=== PATIENT | male | born 1965 | race Caucasian/White ===

== ENCOUNTER 2016-09-15 14:08 | Emergency (ER) | payer BC, MEDICAID, OTHER ==
[2016-09-15] MEDS ORDERED: INSULIN REG, HUMAN 100 UNIT/ML 3 ML VIAL (PYX) SUBCUT ONE ×3 (15:13→17:08)
[2016-09-15] MEDS ORDERED: NORMAL SALINE 1000 ML 1,000 ML IV PRN (15:13)
--- NOTE | 2016-09-15 15:18 | ER Document Report ---
ED General - General Chief Complaint: High Blood Sugar Stated Complaint: BLOOD SUGAR PROBLEM Mode of Arrival: Ambulatory Information source: Patient Notes: 50-year-old male who has a history of borderline diabetes presents with complaints of high blood sugar. Patient notes his mother was checking his blood sugar noted to be 400-500+ the past 3 days. Patient has had increased urination with blurry vision. Denies any chest pain shortness breath difficult to breathing or any other concerns TRAVEL OUTSIDE OF THE [place] IN LAST 30 DAYS: No - HPI Onset: Last week Onset/Duration: Persistent Quality of pain: No pain Severity: Mild Pain Level: Denies Associated symptoms: Other Exacerbated by: Denies Relieved by: Denies Similar symptoms previously: Yes Recently seen / treated by doctor: Yes Past Medical History - Social History Smoking Status: Never Smoker Cigarette use (# per day): No Chew tobacco use (# tins/day): No Smoking Education Provided: No Family History: Reviewed & Not Pertinent Patient has suicidal ideation: No Patient has homicidal ideation: No Renal/ Medical History: Denies: Hx Peritoneal Dialysis Review of Systems - Review of Systems Notes: REVIEW OF SYSTEMS: CONSTITUTIONAL : Denies fever, chills, or sweats. Denies recent illness. EENT: Admits to blurry vision CARDIOVASCULAR: Denies chest pain. Denies palpitations or racing or irregular heart beat. Denies ankle edema. RESPIRATORY: Denies cough, cold, or chest congestion. Denies shortness of breath, difficulty breathing, or wheezing. GASTROINTESTINAL: Denies abdominal pain or distention. Denies nausea, vomiting , or diarrhea. Denies blood in vomitus, stools, or per rectum. Denies black, tarry stools. Denies constipation. GENITOURINARY: Admits to urinary frequency MUSCULOSKELETAL: Denies back or neck pain or stiffness. Denies joint pain or swelling. SKIN: Denies rash, lesions or sores. HEMATOLOGIC : Denies easy bruising or bleeding. LYMPHATIC: Denies swollen, enlarged glands. NEUROLOGICAL: Admits to paresthesias in feet PSYCHIATRIC: Denies anxiety or stress. Denies depression, suicidal ideation, or homicidal ideation. ALL OTHER SYSTEMS REVIEWED AND NEGATIVE. Dictation was performed using [employer] voice recognition software PHYSICAL EXAMINATION: GENERAL: Well-appearing, well-nourished and in no acute distress. Initial blood sugar 500+ recheck 466 HEAD: Atraumatic, normocephalic. EYES: Pupils equal round and reactive to light, extraocular movements intact, sclera anicteric, conjunctiva are normal. ENT: Nares patent, oropharynx clear without exudates. Moist mucous membranes. NECK: Normal range of motion, supple without lymphadenopathy LUNGS: Breath sounds clear to auscultation bilaterally and equal. No wheezes rales or rhonchi. HEART: Regular rate and rhythm without murmurs ABDOMEN: Soft, nontender, nondistended abdomen. No guarding, no rebound. No masses appreciated. Musculoskeletal: Normal range of motion, no pitting or edema. No cyanosis. NEUROLOGICAL: Cranial nerves grossly intact. Normal speech, normal gait. Normal sensory, motor exams PSYCH: Normal mood, normal affect. SKIN: Warm, Dry, normal turgor, no rashes or lesions noted. Physical Exam - Vital signs Vitals: Temp Pulse Resp BP Pulse Ox 98.1 F 78 18 113/70 99 09/15/16 14:57 09/15/16 14:57 09/15/16 14:57 09/15/16 14:57 09/15/16 14:57 Course - Re-evaluation Re-evalutation: 09/15/16 15:20 Lab work urinalysis pending patient to be given insulin and IV fluids 09/15/16 15:52 No ketones noted in urine, no sign of diabetic ketoacidosis 09/15/16 17:08 Patient's recheck glucose 396 09/15/16 19:06 After 4 bags of fluid 20 units of insulin blood sugar has improved significantly , however patient the family requests to be on medication, I did speak with primary care physician that he will be seeing who requests Invokana and metformin Patient is very happy with this plan After performing a Medical Screening Examination, I estimate there is LOW risk for ACUTE APPENDICITIS, BOWEL OBSTRUCTION, ACUTE CHOLECYSTITIS, PERFORATED DIVERTICULITIS, INCARCERATED HERNIA, PANCREATITIS, or PERFORATED ULCER, thus I consider the discharge disposition reasonable. Also, there is no evidence or peritonitis, sepsis, or toxicity. I have reevaluated this patient multiple times and no significant life threatening changes are noted. The patient and I have discussed the diagnosis and risks, and we agree with discharging home with close follow-up with the understanding that symptoms and presentations can change. We also discussed returning to the Emergency Department immediately if new or worsening symptoms occur. We have discussed the symptoms which are most concerning (e.g., bloody stool, fever, changing or worsening pain, intractable vomiting - standard verbal up date) that necessitate immediate return. - Vital Signs Vital signs: Temp Pulse Resp BP Pulse Ox 98.1 F 78 18 113/70 99 09/15/16 14:57 09/15/16 14:57 09/15/16 14:57 09/15/16 14:57 09/15/16 14:57 - Laboratory Result Diagrams: 09/15/16 15:30 09/15/16 18:25 Laboratory results interpreted by me: 09/15/16 09/15/16 09/15/16 15:30 15:30 15:30 RDW 14.1 H Sodium 135.5 L Potassium 5.4 H Chloride 95 L BUN 28 H Creatinine 1.29 H Est GFR (Non-Af Amer) 59 L Glucose 496 H* POC Glucose Hemoglobin A1c % 13.8 H Calcium 10.3 H Direct Bilirubin 0.5 H Alkaline Phosphatase 139 H Urine Glucose (UA) 09/15/16 09/15/16 09/15/16 15:30 17:05 18:25 RDW Sodium Potassium Chloride BUN 24 H Creatinine Est GFR (Non-Af Amer) Glucose 278 H POC Glucose 397 H Hemoglobin A1c % Calcium Direct Bilirubin Alkaline Phosphatase Urine Glucose (UA) >=500 H Critical Care Note - Critical Care Note Total time excluding time spent on procedures (mins): 34 Comments: 34 minutes of critical care time spent in direct contact evaluating and reevaluating the patient, treating symptoms, reviewing labs and studies and speaking with family and consultants excluding any procedures Discharge - Discharge Clinical Impression: Diabetic neuropathy, type II diabetes mellitus Qualifiers: Diabetes mellitus exterminator helper insulin use: without exterminator helper use Qualified Code(s ): E11.40 - Type 2 diabetes mellitus with diabetic neuropathy, unspecified Diabetes Qualifiers: Diabetes mellitus type: type 2 Diabetes mellitus complication status: with hyperglycemia Diabetes mellitus exterminator helper insulin use: without care home use Qualified Code(s): E11.65 - Type 2 diabetes mellitus with hyperglycemia Condition: Stable Disposition: HOME, SELF-CARE Instructions: Hyperglycemia (OM) Prescriptions: Canagliflozin [Invokana] 100 mg PO QAM #30 tablet Metformin HCl 500 mg PO BID #30 tablet Referrals: FALGUNI VALDEZ MD [NO LOCAL MD] - Follow up tomorrow
[2016-09-15 15:41] LABS: ABSOLUTE BASOPHILS # (AUTO) 0.1 10^3/uL (0.0-0.2); ABSOLUTE EOSINOPHILS # (AUTO) 0.2 10^3/uL (0.0-0.6); ABSOLUTE LYMPHOCYTES (AUTO) 2.9 10^3/uL (0.5-4.7); ABSOLUTE MONOCYTES (AUTO) 0.8 10^3/uL (0.1-1.4); ABSOLUTE NEUT (AUTO) 5.3 10^3/uL (1.7-8.2); BASOPHILS % (AUTO) 1.2 % (0-2); EOSINOPHILS % (AUTO) 2.1 % (0-6); HEMATOCRIT 41.1 % (37.9-51.0); HEMOGLOBIN 13.9 g/dL (13.5-17.0); HGB HCT DIFFERENCE 0.6; LYMPHOCYTES % (AUTO) 30.7 % (13-45); MEAN CORPUSCULAR HEMOGLOBIN 29.4 pg (27.0-33.4); MEAN CORPUSCULAR HGB CONC 33.9 g/dL (32.0-36.0); MEAN CORPUSCULAR VOLUME 87 fl (80-97); RED BLOOD COUNT 4.74 10^6/uL (4.35-5.55); RED CELL DISTRIBUTION WIDTH 14.1 % (11.5-14.0); WHITE BLOOD COUNT 9.3 10^3/uL (4.0-10.5)
[2016-09-15 15:47] LABS: APPEARANCE,URINE CLEAR; BILIRUBIN,URINE NEGATIVE (NEGATIVE); GLUCOSE, URINE >=500 mg/dL (NEGATIVE); KETONES,URINE NEGATIVE (NEGATIVE); LEUKOCYTE ESTERASE,URINE NEGATIVE (NEGATIVE); NITRITE,URINE NEGATIVE (NEGATIVE); PROTEIN,URINE NEGATIVE (NEGATIVE); URINE SPECIFIC GRAVITY 1.031; UROBILINOGEN,URINE NEGATIVE mg/dL (<2.0)
[2016-09-15 15:52] LABS: ALANINE AMINOTRANSFERASE 42 U/L (21-72); ALBUMIN 4.3 g/dL (3.5-5.0); ALKALINE PHOSPHATASE 139 U/L (38-126); ANION GAP 12 (5-19); ASPARTATE AMINO TRANSFERASE 31 U/L (17-59); BILIRUBIN,DIRECT 0.5 mg/dL (0.0-0.4); BILIRUBIN,TOTAL 0.9 mg/dL (0.2-1.3); BLOOD UREA NITROGEN 28 mg/dL (7-20); CALCIUM 10.3 mg/dL (8.4-10.2); CARBON DIOXIDE 29 mmol/L (22-30); CHLORIDE 95 mmol/L (98-107); CREATININE RESULT 1.29 mg/dL (0.52-1.25); POTASSIUM 5.4 mmol/L (3.6-5.0); SODIUM 135.5 mmol/L (137-145); TOTAL PROTEIN 7.8 g/dL (6.3-8.2)
[2016-09-15 16:05] LABS: GLUCOSE 496 mg/dL (75-110)
[2016-09-15] MEDS: NORMAL SALINE 1000 ML 1,000 ML IV PRN ×2 (17:16→17:17)
[2016-09-15 18:51] LABS: ALANINE AMINOTRANSFERASE 34 U/L (21-72); ALBUMIN 3.7 g/dL (3.5-5.0); ALKALINE PHOSPHATASE 104 U/L (38-126); ANION GAP 11 (5-19); ASPARTATE AMINO TRANSFERASE 26 U/L (17-59); BILIRUBIN,DIRECT 0.3 mg/dL (0.0-0.4); BILIRUBIN,TOTAL 0.7 mg/dL (0.2-1.3); BLOOD UREA NITROGEN 24 mg/dL (7-20); CALCIUM 8.8 mg/dL (8.4-10.2); CARBON DIOXIDE 25 mmol/L (22-30); CHLORIDE 104 mmol/L (98-107); CREATININE RESULT 1.08 mg/dL (0.52-1.25); GLUCOSE 278 mg/dL (75-110); POTASSIUM 4.8 mmol/L (3.6-5.0); SODIUM 140.3 mmol/L (137-145); TOTAL PROTEIN 6.7 g/dL (6.3-8.2)
[2016-09-15 19:07] VITALS: BP 128/84
== END 2016-09-15 19:14 | disposition home or self-care (01) ==
LOC: ER 14:08
DX: E11.40 Type 2 diabetes mellitus with diabetic neuropathy, unspecified (principal); E11.65 Type 2 diabetes mellitus with hyperglycemia; R35.0 Frequency of micturition; H53.8 Other visual disturbances
CPT/HCPCS: 99291; 96360; 96361; 36415; 82962; 85025; 80053; 81001; 83036; J1815; J7030

== ENCOUNTER 2018-09-05 18:47 | Emergency (ER) | payer BC ==
[2018-09-05] MEDS ORDERED: NORMAL SALINE 500 ML IV ONE (19:55)
[2018-09-05 20:16] LABS: ABSOLUTE BASOPHILS # (AUTO) 0.1 10^3/uL (0.0-0.2); ABSOLUTE EOSINOPHILS # (AUTO) 0.2 10^3/uL (0.0-0.6); ABSOLUTE LYMPHOCYTES (AUTO) 3.1 10^3/uL (0.5-4.7); ABSOLUTE MONOCYTES (AUTO) 0.9 10^3/uL (0.1-1.4); BASOPHILS % (AUTO) 0.5 % (0-2); EOSINOPHILS % (AUTO) 2.3 % (0-6); HEMATOCRIT 38.3 % (37.9-51.0); HEMOGLOBIN 13.2 g/dL (13.5-17.0); LYMPHOCYTES % (AUTO) 30.5 % (13-45); MEAN CORPUSCULAR HEMOGLOBIN 29.4 pg (27.0-33.4); MEAN CORPUSCULAR HGB CONC 34.4 g/dL (32.0-36.0); MEAN CORPUSCULAR VOLUME 86 fl (80-97); MONOCYTES % (AUTO) 8.5 % (3-13); PLATELET COUNT 274 10^3/uL (150-450); RED BLOOD COUNT 4.48 10^6/uL (4.35-5.55); RED CELL DISTRIBUTION WIDTH 14.3 % (11.5-14.0); SEGMENTED NEUTROPHILS % (AUTO) 58.2 % (42-78); TOTAL CELLS COUNTED % (AUTO) 100 %; WHITE BLOOD COUNT 10.3 10^3/uL (4.0-10.5)
[2018-09-05 20:30] LABS: ANION GAP 16 (5-19); BLOOD UREA NITROGEN 35 mg/dL (7-20); CALCIUM 10.3 mg/dL (8.4-10.2); CARBON DIOXIDE 22 mmol/L (22-30); CHLORIDE 100 mmol/L (98-107); GLUCOSE 276 mg/dL (75-110); POTASSIUM 5.3 mmol/L (3.6-5.0); SODIUM 137.7 mmol/L (137-145)
[2018-09-05] MEDS ORDERED: SODIUM POLYSTYRENE SULFONATE 15 GM/60 ML PO ONE (21:57)
[2018-09-05] MEDS ORDERED: CEPHALEXIN 500 MG CAPSULE PO ONE (22:06)
[2018-09-05] MEDS ORDERED: INSULIN REG, HUMAN 100 UNIT/ML 3 ML VIAL (PYX) IV ONE (22:06)
--- NOTE | 2018-09-05 22:25 | ER Document Report ---
ED General - General Chief Complaint: Leg Swelling Stated Complaint: LEG PAIN Time Seen by Provider: 09/05/18 19:49 Primary Care Provider: SUSAN VALDEZ MD [Primary Care Provider] - Follow up as needed TRAVEL OUTSIDE OF THE [place] IN LAST 30 DAYS: No - HPI Notes: Patient is a 52-year-old gentleman who presents to the emergency department for evaluation of right leg pain and swelling. He states is been present over the last 2 days. He is worried he could have a blood clot. He has no history of DVT. No family history of DVT. He has no history of malignancy, no recent surg gonsalo, no prolonged immobilization. He denies any chest pain or difficulty breathing. He states he is urinating normally. He states he is currently taking metformin and lisinopril, as well as HCTZ, for high blood pressure and diabetes. He states his blood sugars are usually in the 140s. He has not seen his doctor in at least 6 months. - Related Data Allergies/Adverse Reactions: No Known Allergies Allergy (Unverified 09/05/18 18:49) Past Medical History - General Information source: Patient - Social History Smoking Status: Former Smoker Frequency of alcohol use: None Drug Abuse: None Family History: DM, Hypertension Patient has suicidal ideation: No Patient has homicidal ideation: No - Past Medical History Cardiac Medical History: Reports: Hx Hypertension Endocrine Medical History: Reports: Hx Diabetes Mellitus Type 2 Renal/ Medical History: Denies: Hx Peritoneal Dialysis Review of Systems - Review of Systems Constitutional: No symptoms reported EENT: No symptoms reported Cardiovascular: No symptoms reported Respiratory: No symptoms reported Gastrointestinal: No symptoms reported Genitourinary: No symptoms reported Musculoskeletal: See HPI Skin: No symptoms reported Neurological/Psychological: No symptoms reported Physical Exam - Vital signs Vitals: Temp Pulse Resp BP Pulse Ox 98.4 F 113 H 18 97/62 L 95 09/05/18 19:08 09/05/18 19:08 09/05/18 19:08 09/05/18 19:08 09/05/18 19:08 - Notes Notes: Vital signs reviewed, please refer to chart. Patient is normocephalic, atraumatic. Pupils equal round, reactive to light. Neck is supple without meningismus. Heart is regular rate and rhythm. Lungs are clear to auscultation bilaterally. Abdomen is soft, nontender, normoactive bowel sounds throughout. Extremities without cyanosis. Patient has 1+ pitting edema of the right lower extremity, from the mid tibia. He does have some mild diffuse erythema, not well demarcated. He does have palpable cords consistent with a superficial thrombophlebitis. Dorsalis pedis pulses 2+, sensation is intact, capillary refill is brisk. Peripheral pulses are equal. Skin is warm and dry. Patient is awake, alert, neurological exam is nonfocal. Course - Re-evaluation Re-evalutation: 09/05/18 22:23 Patient presents emergency department for evaluation. On arrival his blood pressure was in the 90s. He states is normally not that low. He denies any dizziness associated with this. He states he has not had any medication changes as of late. He was placed on the monitor given IV fluids, and as a result of this lower blood pressure laboratory vesication's were obtained. Laboratory investigations did reveal some acute renal failure and a mild hyperkalemia. His blood sugar was elevated as well. He was treated with IV and, oral Kayexalate. Doppler was found to be positive for superficial thrombus, but no deep vein thrombosis were noted. Patient of course with his elevated creatinine is unable to tolerate any sort of anti-inflammatory medications for this. We will treat him with Keflex for the options it is infectious. At this point, the patient has absolutely no symptoms. He does have a primary care physician, Dr. Valdez, that he can see this week. Patient is told he needs to stop with his lisinopril as well as his metformin. He is to follow-up with his doctor in 24-48 hours at the most. He understands his abnormal labs, the need to stop these medications, and the acute need for follow-up. He is to watch his diet closely. We will give him a prescription for Keflex. He is return to the emergency department with worsening or new concerning symptoms of any sort. 09/05/18 22:39 - Vital Signs Vital signs: Temp Pulse Resp BP Pulse Ox 98.4 F 106 H 20 113/75 97 09/05/18 19:08 09/05/18 20:00 09/05/18 20:01 09/05/18 20:00 09/05/18 20:01 - Laboratory Result Diagrams: 09/05/18 19:54 09/05/18 19:54 Laboratory results interpreted by me: 09/05/18 09/05/18 19:54 19:54 Hgb 13.2 L RDW 14.3 H Potassium 5.3 H BUN 35 H Creatinine 2.47 H Est GFR ( Amer) 33 L Est GFR (Non-Af Amer) 28 L Glucose 276 H Calcium 10.3 H - Diagnostic Test Radiology reviewed: Reports reviewed - And formal report given by concrete engineering technician revealing superficial thrombus in the greater saphenous vein, but negative for DVT - EKG Interpretation by Me Additional EKG results interpreted by me: 09/05/18 22:25 Sinus mechanism with a rate of 95 bpm. Left axis deviation. Normal intervals, no acute ST changes concerning for ischemia or infarction. Discharge - Discharge Clinical Impression: Hyperkalemia, Hyperglycemia, Acute kidney injury Superficial thrombophlebitis of lower extremity Qualifiers: Laterality: right Qualified Code(s): I80.01 - Phlebitis and thrombophlebitis of superficial vessels of right lower extremity Condition: Stable Disposition: HOME, SELF-CARE Additional Instructions: Your lab evaluation here today revealed abnormal kidney function. Your creatinine was 2.47, you should bring this number to your primary care physician tomorrow. Your potassium was also mildly elevated. You need to stop taking your metformin as well as your lisinopril. Avoid taking any Advil, ibuprofen, or other [id number] anti-inflammatory. Rest, stay well-hydrated. Take antibiotic as prescribed. Follow-up with your doctor in 1-2 days. Return to the emergency department with worsening or new concerning symptoms of any sort. Prescriptions: Cephalexin Monohydrate [Keflex 500 mg Capsule] 500 mg PO Q8H #20 capsule Referrals: SUSAN VALDEZ MD [Primary Care Provider] - Follow up as needed
[2018-09-05 23:31] VITALS: BP 100/68
--- NOTE | 2018-09-05 23:44 | EKG REPORT ---
SEVERITY:- ABNORMAL ECG - SINUS RHYTHM LEFT ANTERIOR FASCICULAR BLOCK : Confirmed by: Leo Mcdaniels 05-Sep-2018 23:43:51
--- NOTE | 2018-09-06 08:55 | XCELERA REPORT ---
[address] [place] [facility] [id number] Lower Extremity Venous Evaluation Procedure: Color flow and duplex imaging of the veins of the right lower extremity as well as the left Common Femoral vein. Right Sided Venous Evaluation Enlarged, non compressible, hypoechoic portion of mid calf Greater Saphenous vein. Not able to comment on length or flow within segment. Normal vessel filling wall to wall, compression and augmentation as well as Colour flow down to the infrageniculate veins. Left Sided Venous Evaluation The left common femoral vein is fully compressible. Spontaneous and phasic flow is present in the left common femoral vein. Interpretation Summary No duplex evidence of DVT or obstruction in the right lower extremity nor in the left Common Femoral vein. Greater Saphenous and varicose superficial phlebitis in mid calf, right leg. Name: JOZEF RICHARDS Age: 52 yrs Gender: Male : 1965 Patient Status: Emergency Patient Location: ER Study Date: 09/05/2018 08:17 PM Reason For Study: Right lower extremity edema, rule out DVT Ordering Physician: KIKE ZELAYA Performed By: Ronal Wilcox : KIKE ZELAYA > Gabriel Manuel
== END 2018-09-05 23:45 | disposition home or self-care (01) ==
LOC: ER 18:47
DX: I80.01 Phlebitis and thrombophlebitis of superficial vessels of right lower extremity (principal); E87.5 Hyperkalemia; E11.65 Type 2 diabetes mellitus with hyperglycemia; N17.9 Acute kidney failure, unspecified; M79.89 Other specified soft tissue disorders; M79.604 Pain in right leg; Z79.84 Long term (current) use of oral hypoglycemic drugs; Z79.899 Other long term (current) drug therapy; Z87.891 Personal history of nicotine dependence; I10 Essential (primary) hypertension
CPT/HCPCS: 93005; 99284; 96360; 96361; 36415; 85025; 80048; 93971 ×2; 93010; J1815; J7040

== ENCOUNTER 2019-02-02 15:34 | Inpatient (IN) | payer BC ==
--- NOTE | 2019-02-02 16:57 | ER Document Report ---
ED Medical Screen (RME) - General Chief Complaint: Sore Throat Stated Complaint: DIZZY,HEADACHE,SORE THROAT Time Seen by Provider: 02/02/19 16:50 Primary Care Provider: SUSAN VALDEZ MD [Primary Care Provider] - Follow up as needed Mode of Arrival: Ambulatory Information source: Patient Notes: Patient presents to the emergency department with multiple complaints. He complains of dizziness blurred vision sore throat neck pain and possible cellulitis to his left lower leg. Patient is a diabetic. Denies fever vomiting diarrhea. Works in the [employer] reports he feels dizzy when he bends over. No complaints of chest pain or shortness of breath. Respiratory rate even unlabored patient looks nontoxic. I have greeted and performed a rapid initial assessment of this patient. A comprehensive ED assessment and evaluation of the patient, analysis of test results and completion of the medical decision making process will be conducted by additional ED providers. Dictation of this chart was performed using voice recognition software; therefore, there may be some unintended grammatical errors. TRAVEL OUTSIDE OF THE [place] IN LAST 30 DAYS: No - Related Data Allergies/Adverse Reactions: No Known Allergies Allergy (Verified 02/02/19 15:39) Past Medical History - Social History Chew tobacco use (# tins/day): No Frequency of alcohol use: None Drug Abuse: None - Past Medical History Cardiac Medical History: Reports: Hx Hypertension Endocrine Medical History: Reports: Hx Diabetes Mellitus Type 2 Renal/ Medical History: Denies: Hx Peritoneal Dialysis Past Surgical History: Reports: Hx Abdominal Surgery - diverticulitis Physical Exam - Vital signs Vitals: Temp Pulse Resp BP Pulse Ox 98.9 F 102 H 18 98/54 L 93 02/02/19 15:43 02/02/19 15:43 02/02/19 15:43 02/02/19 15:43 02/02/19 15:43 Course - Vital Signs Vital signs: Temp Pulse Resp BP Pulse Ox 98.9 F 102 H 18 98/54 L 93 02/02/19 15:43 02/02/19 15:43 02/02/19 15:43 02/02/19 15:43 02/02/19 15:43 Doctor's Discharge - Discharge Referrals: SUSAN VADLEZ MD [Primary Care Provider] - Follow up as needed
[2019-02-02 17:28] LABS: ABSOLUTE BASOPHILS # (AUTO) 0.2 10^3/uL (0.0-0.2); ABSOLUTE EOSINOPHILS # (AUTO) 0.2 10^3/uL (0.0-0.6); ABSOLUTE LYMPHOCYTES (AUTO) 2.5 10^3/uL (0.5-4.7); ABSOLUTE MONOCYTES (AUTO) 0.7 10^3/uL (0.1-1.4); ABSOLUTE NEUT (AUTO) 5.9 10^3/uL (1.7-8.2); BASOPHILS % (AUTO) 1.9 % (0-2); EOSINOPHILS % (AUTO) 2.1 % (0-6); HEMATOCRIT 36.4 % (37.9-51.0); HEMOGLOBIN 12.1 g/dL (13.5-17.0); LYMPHOCYTES % (AUTO) 26.5 % (13-45); MEAN CORPUSCULAR HEMOGLOBIN 28.3 pg (27.0-33.4); MEAN CORPUSCULAR HGB CONC 33.3 g/dL (32.0-36.0); MEAN CORPUSCULAR VOLUME 85 fl (80-97); MONOCYTES % (AUTO) 7.5 % (3-13); PLATELET COUNT 289 10^3/uL (150-450); RED BLOOD COUNT 4.28 10^6/uL (4.35-5.55); RED CELL DISTRIBUTION WIDTH 14.4 % (11.5-14.0); TOTAL CELLS COUNTED % (AUTO) 100 %; WHITE BLOOD COUNT 9.5 10^3/uL (4.0-10.5)
[2019-02-02] MEDS ORDERED: MECLIZINE HCL 25 MG TABLET PO ONE (17:28)
--- NOTE | 2019-02-02 17:41 | ER Document Report ---
ED General - General Chief Complaint: Sore Throat Stated Complaint: DIZZY,HEADACHE,SORE THROAT Time Seen by Provider: 02/02/19 16:50 Primary Care Provider: SUSAN VALDEZ MD [Primary Care Provider] - Follow up as needed Mode of Arrival: Ambulatory TRAVEL OUTSIDE OF THE [place] IN LAST 30 DAYS: No - HPI Notes: Patient is a 53-year-old male with a history of HTN and type 2 diabetes who presents complaining of having a mild frontal headache with occasional blurring of his vision that started earlier this week. This is not the worst headache of his life and did not reach maximal intensity immediately. Patient states that he has had a sore throat as well and on occasion will have some generalized weakness. 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 Patient states that he has had headaches like this in the past with similar blurring of his vision which is not new for him. Patient states that he also has light sensitivity. Patient states that his sugar has been up and has needed IV fluids before for similar symptoms which is why he came here today. He denies any drug allergies. He is urinating normally and having normal bowel movements. Pt would like a spot on his left leg looked at where he has noticed a little redness x1 week in the area. No abscess/streaks/purulence. Patient states that he otherwise feels well. Patient is acting and behaving normally per significant other. Denies any fever, head injury, neck pain, changes in speech/mentation/hearing, URI, chest pain, palpitations, syncope, cough, shortness of breath, wheeze, dyspnea, abdominal pain, nausea/vomiting/diarrhea, urinary retention, dysuria, hematuria, loss of control of bowel or bladder, numbness/tingling, saddle anesthesia, muscle paralysis/weakness. Accu-Chek at triage was 567. - Related Data Allergies/Adverse Reactions: No Known Allergies Allergy (Verified 02/02/19 15:39) Past Medical History - General Information source: Patient - Social History Smoking Status: Never Smoker Chew tobacco use (# tins/day): No Frequency of alcohol use: None Drug Abuse: None Family History: DM, Hypertension Patient has suicidal ideation: No Patient has homicidal ideation: No - Past Medical History Cardiac Medical History: Reports: Hx Hypertension Endocrine Medical History: Reports: Hx Diabetes Mellitus Type 2 Renal/ Medical History: Denies: Hx Peritoneal Dialysis Past Surgical History: Reports: Hx Abdominal Surgery - diverticulitis Review of Systems - Review of Systems -: Yes All other systems reviewed and negative Physical Exam - Vital signs Vitals: Temp Pulse Resp BP Pulse Ox 98.9 F 102 H 18 98/54 L 93 02/02/19 15:43 02/02/19 15:43 02/02/19 15:43 02/02/19 15:43 02/02/19 15:43 - Notes Notes: PHYSICAL EXAMINATION: GENERAL: Well-appearing, well-nourished and in no acute distress. A&Ox4. A nswers questions appropriately. HEAD: Atraumatic, normocephalic. Non-tender. EYES: Pupils equal round and reactive to light, extraocular movements intact, sclera anicteric, conjunctiva are normal. No nystagmus. vis johnson intact. ENT: EAC clear b/l. TM's intact b/l without erythema, fluid, or perforation. Nares patent and without discharge. oropharynx clear without exudates. No tonsilar hypertrophy with mild erythema. Moist mucous membranes. No sinus tenderness. NECK: Normal range of motion, supple without lymphadenopathy. No rigidity/meningismus. No midline tenderness. LUNGS: Breath sounds clear to auscultation bilaterally and equal. No wheezes rales or rhonchi. HEART: Regular rate and rhythm without murmurs, rubs, gallops. ABDOMEN: Soft, nontender, nondistended abdomen. No guarding, no rebound. Normal bowel sounds present. No CVA tenderness bilaterally. Musculoskeletal: Ext b/l: FROM to passive/active. Strength 5+/5. No deficits noted. No bony tenderness of extremities. Extremities: trace pitting edema b/l LE's. Peripheral pulses 2+. Capillary refill less than 2 seconds. NEUROLOGICAL: NIH 0. GCS 15. Cranial nerves grossly intact. Normal speech, normal gait. Normal sensory, motor exams. Reflexes 2+ b/l. ARIC's negative. Pronator drift negative. Heel/najera, finger/nose wnl. Romberg neg. PSYCH: Normal mood, normal affect. SKIN: the area of concern is primarily to his left knee superiorly where there is noted mild redness (size of quarter but not in a circular or erythemic migran pattern) that blanches and has superficial vasculature noted (small varicose veins). No calf tenderness. No fluctuance, induration, or tenderness to the areas of erythema. No warmth. He has another area to the anterior lower leg. Course - Re-evaluation Re-evalutation: 02/02/19 19:57 Patient is an afebrile 53-year-old male who presents with dehydration, hyperglycemia, and DANIELA. Vitals are acceptable without significant tachycardia, tachypnea, or hypoxia. PE is otherwise unremarkable. Patient is nontoxic- appearing and is able to tolerate p.o. without difficulty. There is no evidence of sepsis, DKA, HHS, acute abdomen, rhabdo. Patient is currently receiving his third liter of fluid at this time. Patient has never been told that he has chronic kidney disease. He has been continuing to take his metformin. Pt has not had any CP, HALL, SOB. I did speak with Dr. Navarrete who would like cardiacs obtained and we will call him back thereafter. 02/02/19 20:58 Dr. Navarrete will take pt to Telemetry. - Vital Signs Vital signs: Temp Pulse Resp BP Pulse Ox 98.7 F 93 16 127/76 H 100 02/02/19 19:56 02/02/19 19:56 02/02/19 19:56 02/02/19 19:56 02/02/19 19:56 - Laboratory Result Diagrams: 02/02/19 17:10 02/02/19 17:10 Laboratory results interpreted by me: 02/02/19 02/02/19 02/02/19 17:10 17:10 19:23 RBC 4.28 L Hgb 12.1 L Hct 36.4 L RDW 14.4 H Sodium 132.9 L Carbon Dioxide 20 L BUN 46 H Creatinine 3.35 H Est GFR ( Amer) 23 L Est GFR (MDRD) Non-Af 19 L Glucose 569 H* POC Glucose 420 H* Alkaline Phosphatase 147 H Urine Glucose (UA) 02/02/19 19:48 RBC Hgb Hct RDW Sodium Carbon Dioxide BUN Creatinine Est GFR ( Amer) Est GFR (MDRD) Non-Af Glucose POC Glucose Alkaline Phosphatase Urine Glucose (UA) >=500 H Discharge - Discharge Clinical Impression: Dehydration, DANIELA (acute kidney injury) Condition: Stable Disposition: ADMITTED INPATIENT Admitting Provider: Landon (Hospitalist) Unit Admitted: Telemetry Referrals: SUSAN VALDEZ MD [Primary Care Provider] - Follow up as needed
[2019-02-02 17:47] LABS: ALKALINE PHOSPHATASE 147 U/L (38-126); ANION GAP 14 (5-19); ASPARTATE AMINO TRANSFERASE 21 U/L (17-59); BILIRUBIN,DIRECT 0.2 mg/dL (0.0-0.4); BILIRUBIN,TOTAL 0.5 mg/dL (0.2-1.3); BLOOD UREA NITROGEN 46 mg/dL (7-20); CALCIUM 9.4 mg/dL (8.4-10.2); CARBON DIOXIDE 20 mmol/L (22-30); CHLORIDE 99 mmol/L (98-107); POTASSIUM 4.9 mmol/L (3.6-5.0); TOTAL PROTEIN 7.1 g/dL (6.3-8.2)
[2019-02-02] MEDS: NORMAL SALINE 1000 ML 1,000 ML IV PRN ×2 (18:04→18:39)
[2019-02-02 18:10] LABS: GLUCOSE 569 mg/dL (75-110)
[2019-02-02] MEDS ORDERED: INSULIN REG, HUMAN 100 UNIT/ML 3 ML VIAL (PYX) IV ONE (18:35)
[2019-02-02] MEDS ORDERED: INSULIN REG, HUMAN 100 UNIT/ML 3 ML VIAL (PYX) SUBCUT ONE ×2 (18:39→19:20)
[2019-02-02] MEDS ORDERED: NORMAL SALINE 1000 ML 1,000 ML IV ONE (19:25)
[2019-02-02 20:01] LABS: APPEARANCE,URINE CLEAR; BILIRUBIN,URINE NEGATIVE (NEGATIVE); COLOR,URINE YELLOW; GLUCOSE, URINE >=500 mg/dL (NEGATIVE); KETONES,URINE NEGATIVE (NEGATIVE); LEUKOCYTE ESTERASE,URINE NEGATIVE (NEGATIVE); NITRITE,URINE NEGATIVE (NEGATIVE); PROTEIN,URINE NEGATIVE (NEGATIVE); URINE SPECIFIC GRAVITY 1.017; UROBILINOGEN,URINE NEGATIVE mg/dL (<2.0)
[2019-02-02 20:53] LABS: CREATINE KINASE MB 0.84 ng/mL (<4.55); NT PRO BNP 97 pg/mL (5-900)
[2019-02-02 20:54] LABS: TROPONIN I < 0.012 ng/mL
--- NOTE | 2019-02-02 20:56 | RADIOLOGY REPORT (SQ) ---
EXAM DESCRIPTION: XR CHEST 1 VIEW COMPLETED DATE/TME: 02/02/2019 20:00 CLINICAL HISTORY: 53 years, Male, weak COMPARISON: None. NUMBER OF VIEWS: One TECHNIQUE: Single frontal view of the chest was obtained portably LIMITATIONS: None. FINDINGS: Cardiac and mediastinal contours are normal. Lungs are clear. No pleural effusion or pneumothorax. IMPRESSION: No acute disease. copyright 2010 [employer]- All Rights Reserved
[2019-02-02] MEDS ORDERED: GLUCAGON,HUMAN RECOMB 1 MG INJ IM PRN (20:59)
[2019-02-02] MEDS ORDERED: DEXTROSE 40% GEL 15 GM TUBE PO PRN ×2 (20:59)
[2019-02-02] MEDS ORDERED: IPRATROPIUM/ALBUTEROL 0.5-2.5 MG/3 ML AMPUL NEB PRN (20:59)
[2019-02-02] MEDS ORDERED: DEXTROSE 50%-WATER 25 GM/50 ML DISP.SYRIN IV PRN ×2 (20:59)
[2019-02-02] MEDS ORDERED: ONDANSETRON HCL INJ/PF 4 MG/2 ML SDV IV PRN (20:59)
[2019-02-02] MEDS ORDERED: NORMAL SALINE 1000 ML 1,000 ML IV SCH (21:00)
[2019-02-02] MEDS: ACETAMINOPHEN 325 MG TABLET PO PRN (21:24)
--- NOTE | 2019-02-02 22:21 | EKG REPORT ---
SEVERITY:- ABNORMAL ECG - SINUS RHYTHM LEFT ANTERIOR FASCICULAR BLOCK : Confirmed by: Treasure Felipe MD 02-Feb-2019 22:20:46
[2019-02-02] MEDS: HEPARIN SOD (PORCINE) 5,000 UNIT/ML 1 ML VIAL SUBCUT SCH (22:22)
[2019-02-03] MEDS: NORMAL SALINE 1000 ML 1,000 ML IV PRN ×3 (00:10→04:33)
[2019-02-03] MEDS: HEPARIN SOD (PORCINE) 5,000 UNIT/ML 1 ML VIAL SUBCUT SCH ×3 (05:09→21:42)
--- NOTE | 2019-02-03 05:12 | PDOC H&P ---
History of Present Illness Admission Date/PCP: 02/02/19 21:17 SUSAN VALDEZ MD Patient complains of: Generalized weakness History of Present Illness: JOZEF RICHARDS is a 53 year old male with a past medical history of hypertension, gout and diabetes. He presents with 1 week of fatigue generalized headache, polyuria polydipsia and anorexia. He denies fever, shortness of breath or chest pain. In the emergency room he is found to have hypotension, mild metabolic acidosis, hyperglycemia, hyperkalemia and acute renal failure. He denies recent change of medication regiment continuing metformin, hydrochlorothiazide and lisinopril. He denies recent primary care, indomethacin or NSAID use. He is referred to the hospitalist for admission. Past Medical History Cardiac Medical History: Reports: Hypertension Endocrine Medical History: Reports: Diabetes Mellitus Type 2, Obesity Past Surgical History Past Surgical History: Reports: Herniorrhaphy Social History Information Source: Patient Smoking Status: Never Smoker Frequency of Alcohol Use: Occasional Hx Recreational Drug Use: No Drugs: None - Advance Directive Resuscitation Status: Full Code Family History Family History: DM, Hypertension Parental Family History Reviewed: Yes Children Family History Reviewed: Yes Sibling(s) Family History Reviewed.: Yes Medication/Allergy Home Medications: Hydrochlorothiazide [Hydrodiuril 25 mg Tablet] 25 mg PO DAILY 02/02/19 Lisinopril [Prinivil 40 mg Tablet] 40 mg PO DAILY 02/02/19 Metformin HCl [Glucophage 500 mg Tablet] 1,000 mg PO BID 02/02/19 Allergies/Adverse Reactions: No Known Allergies Allergy (Verified 02/02/19 15:39) Review of Systems Constitutional: PRESENT: as per HPI, anorexia, fatigue, weight loss - Unintentional 30 pound weight loss in the last 6 months Eyes: ABSENT: visual disturbances Ears: ABSENT: hearing changes Cardiovascular: PRESENT: as per HPI, edema. ABSENT: orthropnea Respiratory: ABSENT: cough, hemoptysis Gastrointestinal: PRESENT: as per HPI, bloating, dysphagia, nausea, vomiting. ABSENT: abdominal pain, constipation, diarrhea, hematemesis, hematochezia Genitourinary: ABSENT: dysuria, hematuria Musculoskeletal: ABSENT: joint swelling Integumentary: ABSENT: rash, wounds Neurological: ABSENT: abnormal gait, abnormal speech, confusion, dizziness, focal weakness, syncope Psychiatric: ABSENT: anxiety, depression, homidical ideation, suicidal ideation Endocrine: ABSENT: cold intolerance, heat intolerance, polydipsia, polyuria Hematologic/Lymphatic: ABSENT: easy bleeding, easy bruising Physical Exam Vital Signs: Temp Pulse Resp BP Pulse Ox 97.9 F 82 18 117/80 100 02/03/19 01:00 02/03/19 02:00 02/03/19 01:00 02/03/19 01:00 02/03/19 01:00 Intake & Output 02/01/19 02/02/19 02/03/19 11:59 11:59 11:59 Intake Total 5243 Balance 5243 Weight 123.9 kg General appearance: PRESENT: cooperative, mild distress, morbidly obese, well- developed, well-nourished Head exam: PRESENT: atraumatic, normocephalic Eye exam: PRESENT: conjunctiva pink, EOMI, PERRLA. ABSENT: scleral icterus Ear exam: PRESENT: normal external ear exam Mouth exam: PRESENT: dry mucosa, tongue midline Neck exam: ABSENT: carotid bruit, JVD, lymphadenopathy, thyromegaly Respiratory exam: PRESENT: clear to auscultation isabelle. ABSENT: rales, rhonchi, wheezes Cardiovascular exam: PRESENT: RRR, +S1, +S2, tachycardia. ABSENT: systolic murmur Pulses: PRESENT: normal dorsalis pedis pul Vascular exam: PRESENT: normal capillary refill GI/Abdominal exam: PRESENT: hypoactive bowel sounds, soft. ABSENT: ascites, distended, firm, organolmegaly Rectal exam: PRESENT: deferred Extremities exam: PRESENT: +1 edema - Left leg with 6 x 4 cm waxy plaque and erythema suggestive of necrobiosis liopidica diabeticorum Neurological exam: PRESENT: alert, awake, oriented to person, oriented to place, oriented to time, oriented to situation, CN II-XII grossly intact. ABSENT: motor sensory deficit Psychiatric exam: PRESENT: appropriate affect, normal mood. ABSENT: homicidal ideation, suicidal ideation Skin exam: PRESENT: other - Left leg erythema with waxy plaque 6 x 4 cm strongly suggestive of necrobiosis diabeticorum Results Laboratory Results: 02/02/19 17:10 02/02/19 17:10 02/02/19 02/02/19 02/02/19 17:10 17:10 19:48 WBC 9.5 RBC 4.28 L Hgb 12.1 L Hct 36.4 L MCV 85 MCH 28.3 MCHC 33.3 RDW 14.4 H Plt Count 289 Seg Neutrophils % 62.0 Sodium 132.9 L Potassium 4.9 Chloride 99 Carbon Dioxide 20 L Anion Gap 14 BUN 46 H Creatinine 3.35 H Est GFR ( Amer) 23 L Glucose 569 H* Calcium 9.4 Total Bilirubin 0.5 AST 21 Alkaline Phosphatase 147 H Total Protein 7.1 Albumin 4.0 Urine Color YELLOW Urine Appearance CLEAR Urine pH 5.0 Ur Specific [place] 1.017 Urine Protein NEGATIVE Urine Glucose (UA) >=500 H Urine Ketones NEGATIVE Urine Blood NEGATIVE Urine Nitrite NEGATIVE Ur Leukocyte Esterase NEGATIVE Urine WBC (Auto) 1 02/02/19 02/02/19 17:10 17:10 Creatine Kinase 80 CK-MB (CK-2) 0.84 Troponin I < 0.012 NT-Pro-B Natriuret Pep 97 Impressions: Chest X-Ray 02/02/19 20:00 IMPRESSION: No acute disease. copyright 2010 [employer]- All Rights Reserved Assessment and Plan - Diagnosis (1) Diabetic ketoacidosis Qualifiers: Diabetes mellitus type: type 2 Diabetes mellitus complication detail: without coma Qualified Code(s): E11.10 - Type 2 diabetes mellitus with ketoacidosis without coma Is this a current diagnosis for this admission?: Yes Plan: Diabetic ketoacidosis patient has had some degree of polyuria polydipsia with nausea and uncontrolled hyperglycemia with supporting labs. Patient will receive IV fluids IV insulin serial chemistries every 6 hours for evaluation for electrolyte repletion. Continued evaluation for underlying cause if not found Patient will require diabetic education and consideration of mental health evaluation. (2) Hyperkalemia Is this a current diagnosis for this admission?: Yes Plan: Trial insulin and hydration. Follow-up chemistry (3) DANIELA (acute kidney injury) Is this a current diagnosis for this admission?: Yes Plan: Multifactorial secondary to severe prerenal dehydration, type IV RTA and possibly metformin. Avoid nephrotoxic meds and doses, trial of IV fluid. Follow-up chemistry (5) Necrobiosis diabeticorum Is this a current diagnosis for this admission?: Yes Plan: Versus venous stasis, optimize diabetic control, HENOK stockings - Time Time Spent with patient: 25-34 minutes - Inpatient Certification Medical Necessity: Need Close Monitoring Due to Risk of Patient Decompensation
[2019-02-03 06:36] LABS: ABSOLUTE BASOPHILS # (AUTO) 0.1 10^3/uL (0.0-0.2); ABSOLUTE EOSINOPHILS # (AUTO) 0.2 10^3/uL (0.0-0.6); ABSOLUTE LYMPHOCYTES (AUTO) 1.9 10^3/uL (0.5-4.7); ABSOLUTE MONOCYTES (AUTO) 0.6 10^3/uL (0.1-1.4); ABSOLUTE NEUT (AUTO) 2.6 10^3/uL (1.7-8.2); EOSINOPHILS % (AUTO) 3.3 % (0-6); HEMATOCRIT 31.7 % (37.9-51.0); HEMOGLOBIN 10.7 g/dL (13.5-17.0); LYMPHOCYTES % (AUTO) 36.2 % (13-45); MEAN CORPUSCULAR HEMOGLOBIN 28.5 pg (27.0-33.4); MEAN CORPUSCULAR HGB CONC 33.6 g/dL (32.0-36.0); MEAN CORPUSCULAR VOLUME 85 fl (80-97); MONOCYTES % (AUTO) 10.4 % (3-13); PLATELET COUNT 204 10^3/uL (150-450); RED BLOOD COUNT 3.75 10^6/uL (4.35-5.55); RED CELL DISTRIBUTION WIDTH 14.6 % (11.5-14.0); SEGMENTED NEUTROPHILS % (AUTO) 49.1 % (42-78); TOTAL CELLS COUNTED % (AUTO) 100 %; WHITE BLOOD COUNT 5.3 10^3/uL (4.0-10.5)
[2019-02-03] MEDS: INSULIN LISPRO 100 UNIT/ML 3 ML VIAL SUBCUT SCH ×3 (09:11→16:59)
[2019-02-03] MEDS: DOCUSATE SODIUM 100 MG CAPSULE PO SCH ×2 (09:12→17:09)
[2019-02-03] MEDS ORDERED: INSULIN GLARGINE,HUM.REC.ANLOG 1,000 UNIT/10 ML VIAL SUBCUT SCH (10:00)
[2019-02-03] MEDS ORDERED: INSULIN GLARGINE,HUM.REC.ANLOG 1,000 UNIT/10 ML VIAL SUBCUT ONE ×2 (12:52→15:00)
[2019-02-03] MEDS: ACETAMINOPHEN 325 MG TABLET PO PRN ×2 (12:57→21:55)
--- NOTE | 2019-02-03 13:03 | PDOC PROGRESS REPORT ---
Subjective Progress Note for:: 02/03/19 Subjective:: JOZEF RICHARDS is a 53 year old male with a past medical history of hypertension, gout and diabetes. He presents with 1 week of fatigue generalized headache, polyuria polydipsia and anorexia. He denies fever, shortness of breath or chest pain. In the emergency room he is found to have hypotension, mild metabolic acidosis, hyperglycemia, hyperkalemia and acute renal failure. He denies recent change of medication regiment continuing metformin, hydrochlorothiazide and lisinopril. He denies recent primary care, indomethacin or NSAID use. He is referred to the hospitalist for admission. 02/03/2019. Still complaining of blurred vision, polydipsia polyuria has improved. In no apparent distress, cooperative physical examination, comfortably sitting in bed, denies any fever, chills, nausea, vomiting, diarrhea, constipation or any urinary symptoms. Reason For Visit: ARF Physical Exam Vital Signs: Temp Pulse Resp BP Pulse Ox 97.9 F 88 18 117/80 100 02/03/19 01:00 02/03/19 07:00 02/03/19 01:00 02/03/19 01:00 02/03/19 01:00 Intake & Output 02/02/19 02/03/19 02/04/19 06:59 06:59 06:59 Intake Total 5743 Balance 5743 Weight 123.2 kg General appearance: PRESENT: morbidly obese Respiratory exam: PRESENT: clear to auscultation isabelle. ABSENT: rales, rhonchi, wheezes Cardiovascular exam: PRESENT: RRR. ABSENT: diastolic murmur, rubs, systolic murmur GI/Abdominal exam: PRESENT: normal bowel sounds, soft. ABSENT: distended, guarding, mass, organolmegaly, rebound, tenderness Neurological exam: PRESENT: alert, awake, oriented to person, oriented to place, oriented to time, oriented to situation, CN II-XII grossly intact. ABSENT: motor sensory deficit Results Laboratory Results: 02/03/19 06:02 02/02/19 17:10 02/02/19 02/02/19 02/02/19 17:10 17:10 19:48 WBC 9.5 RBC 4.28 L Hgb 12.1 L Hct 36.4 L MCV 85 MCH 28.3 MCHC 33.3 RDW 14.4 H Plt Count 289 Seg Neutrophils % 62.0 Sodium 132.9 L Potassium 4.9 Chloride 99 Carbon Dioxide 20 L Anion Gap 14 BUN 46 H Creatinine 3.35 H Est GFR ( Amer) 23 L Glucose 569 H* Calcium 9.4 Total Bilirubin 0.5 AST 21 Alkaline Phosphatase 147 H Total Protein 7.1 Albumin 4.0 Urine Color YELLOW Urine Appearance CLEAR Urine pH 5.0 Ur Specific [place] 1.017 Urine Protein NEGATIVE Urine Glucose (UA) >=500 H Urine Ketones NEGATIVE Urine Blood NEGATIVE Urine Nitrite NEGATIVE Ur Leukocyte Esterase NEGATIVE Urine WBC (Auto) 1 02/03/19 06:02 WBC 5.3 RBC 3.75 L Hgb 10.7 L Hct 31.7 L MCV 85 MCH 28.5 MCHC 33.6 RDW 14.6 H Plt Count 204 Seg Neutrophils % 49.1 Sodium Potassium Chloride Carbon Dioxide Anion Gap BUN Creatinine Est GFR ( Amer) Glucose Calcium Total Bilirubin AST Alkaline Phosphatase Total Protein Albumin Urine Color Urine Appearance Urine pH Ur Specific [place] Urine Protein Urine Glucose (UA) Urine Ketones Urine Blood Urine Nitrite Ur Leukocyte Esterase Urine WBC (Auto) 02/02/19 02/02/19 17:10 17:10 Creatine Kinase 80 CK-MB (CK-2) 0.84 Troponin I < 0.012 NT-Pro-B Natriuret Pep 97 Impressions: Chest X-Ray 02/02/19 20:00 IMPRESSION: No acute disease. copyright 2010 [employer]- All Rights Reserved Assessment and Plan - Diagnosis (1) Uncontrolled diabetes mellitus Qualifiers: Diabetes mellitus type: type 2 Glycemic state: with hyperglycemia Qualified Code(s): E11.65 - Type 2 diabetes mellitus with hyperglycemia Is this a current diagnosis for this admission?: Yes Plan: Uncontrolled. Hemoglobin A1c 12%. Diabetic diet, diabetic education, long-acting insulin, pre-meal insulin, s liding scale insulin, Accu-Chek, hypoglycemic protocol. Hold metformin due to DANIELA. Will restart if DANIELA resolved. Patient will have to be discharged home insulin to follow-up with PCP for readjustment of his meds. Patient counseled and advised on medical and dietary compliance. (2) DANIELA (acute kidney injury) Is this a current diagnosis for this admission?: Yes Plan: Prerenal to severe dehydration VS type IV RTA and possibly metformin. Monitor volume status closely. Avoid nephrotoxic meds. CMP in a.m. (4) Hyperkalemia Is this a current diagnosis for this admission?: Yes Plan: Resolved. (5) Necrobiosis diabeticorum Is this a current diagnosis for this admission?: Yes Plan: Versus venous stasis, optimize diabetic control, HENOK stockings (6) Morbid obesity Is this a current diagnosis for this admission?: Yes Plan: Likely due to excessive calorie intake. We will check for hypothyroidism. May benefit from bariatric intervention. Diet and lifestyle modification recommended.
[2019-02-03 21:25] LABS: ANION GAP 8 (5-19); BLOOD UREA NITROGEN 30 mg/dL (7-20); CARBON DIOXIDE 22 mmol/L (22-30); CHLORIDE 109 mmol/L (98-107); GLUCOSE 220 mg/dL (75-110); POTASSIUM 4.9 mmol/L (3.6-5.0)
[2019-02-04] MEDS: HEPARIN SOD (PORCINE) 5,000 UNIT/ML 1 ML VIAL SUBCUT SCH ×3 (06:45→21:22)
[2019-02-04] MEDS: INSULIN LISPRO 100 UNIT/ML 3 ML VIAL SUBCUT SCH ×3 (07:44→16:41)
[2019-02-04] MEDS: INSULIN GLARGINE,HUM.REC.ANLOG 1,000 UNIT/10 ML VIAL SUBCUT SCH (07:46)
[2019-02-04 07:47] LABS: ABSOLUTE EOSINOPHILS # (AUTO) 0.2 10^3/uL (0.0-0.6); ABSOLUTE LYMPHOCYTES (AUTO) 1.8 10^3/uL (0.5-4.7); ABSOLUTE MONOCYTES (AUTO) 0.4 10^3/uL (0.1-1.4); ABSOLUTE NEUT (AUTO) 3.6 10^3/uL (1.7-8.2); BASOPHILS % (AUTO) 0.7 % (0-2); EOSINOPHILS % (AUTO) 3.2 % (0-6); HEMATOCRIT 34.2 % (37.9-51.0); HEMOGLOBIN 11.5 g/dL (13.5-17.0); MEAN CORPUSCULAR HGB CONC 33.5 g/dL (32.0-36.0); MEAN CORPUSCULAR VOLUME 83 fl (80-97); MONOCYTES % (AUTO) 6.7 % (3-13); PLATELET COUNT 214 10^3/uL (150-450); RED CELL DISTRIBUTION WIDTH 14.3 % (11.5-14.0); SEGMENTED NEUTROPHILS % (AUTO) 59.4 % (42-78); TOTAL CELLS COUNTED % (AUTO) 100 %
[2019-02-04 08:05] LABS: ALBUMIN 3.4 g/dL (3.5-5.0); ALKALINE PHOSPHATASE 107 U/L (38-126); ANION GAP 6 (5-19); ASPARTATE AMINO TRANSFERASE 20 U/L (17-59); BILIRUBIN,DIRECT 0.2 mg/dL (0.0-0.4); BILIRUBIN,TOTAL 0.3 mg/dL (0.2-1.3); BLOOD UREA NITROGEN 25 mg/dL (7-20); CALCIUM 9.3 mg/dL (8.4-10.2); CARBON DIOXIDE 24 mmol/L (22-30); CHLORIDE 108 mmol/L (98-107); GLUCOSE 183 mg/dL (75-110); POTASSIUM 4.7 mmol/L (3.6-5.0); TOTAL PROTEIN 6.2 g/dL (6.3-8.2)
[2019-02-04] MEDS: DOCUSATE SODIUM 100 MG CAPSULE PO SCH ×2 (09:17→17:05)
[2019-02-04] MEDS: ACETAMINOPHEN 325 MG TABLET PO PRN (12:51)
[2019-02-04 15:04] LABS: ANION GAP 7 (5-19); BLOOD UREA NITROGEN 22 mg/dL (7-20); CALCIUM 9.3 mg/dL (8.4-10.2); CARBON DIOXIDE 23 mmol/L (22-30); CHLORIDE 107 mmol/L (98-107); GLUCOSE 155 mg/dL (75-110); POTASSIUM 4.7 mmol/L (3.6-5.0)
[2019-02-04 15:09] LABS: CHOLESTEROL 318.16 mg/dL (0-200)
[2019-02-04 15:14] LABS: DIRECT LDL 68 mg/dL (<100)
[2019-02-04 15:17] LABS: TRIGLYCERIDES 1062 mg/dL (<150)
--- NOTE | 2019-02-04 18:31 | PDOC PROGRESS REPORT ---
Subjective Progress Note for:: 02/04/19 Subjective:: JOZEF RICHARDS is a 53 year old male with a past medical history of hypertension, gout and diabetes. He presents with 1 week of fatigue generalized headache, polyuria polydipsia and anorexia. He denies fever, shortness of breath or chest pain. In the emergency room he is found to have hypotension, mild metabolic acidosis, hyperglycemia, hyperkalemia and acute renal failure. He denies recent change of medication regiment continuing metformin, hydrochlorothiazide and lisinopril. He denies recent primary care, indomethacin or NSAID use. He is referred to the hospitalist for admission. 02/03/2019. Still complaining of blurred vision, polydipsia polyuria has improved. In no apparent distress, cooperative physical examination, comfortably sitting in bed, denies any fever, chills, nausea, vomiting, diarrhea, constipation or any urinary symptoms. 02/04/2019. No acute events were encountered, polydipsia polyuria and blurred vision has resolved. Patient creatinine is improving however not back to baseline, p.o. tolerant, having normal bowel and bladder movement, ambulatory. Reason For Visit: DEHYDRATION,ACUTE KIDNEY INJURY Physical Exam Vital Signs: Temp Pulse Resp BP Pulse Ox 98.8 F 80 18 125/84 100 02/04/19 17:13 02/04/19 17:13 02/04/19 17:13 02/04/19 17:13 02/04/19 17:13 Intake & Output 02/03/19 02/04/19 02/05/19 06:59 06:59 06:59 Intake Total 5743 1762 466 Balance 5743 1762 466 Weight 123.2 kg 124.3 kg General appearance: PRESENT: obese Respiratory exam: PRESENT: clear to auscultation isabelle. ABSENT: rales, rhonchi, wheezes Cardiovascular exam: PRESENT: RRR. ABSENT: diastolic murmur, rubs, systolic murmur GI/Abdominal exam: PRESENT: normal bowel sounds, soft. ABSENT: distended, guarding, mass, organolmegaly, rebound, tenderness Neurological exam: PRESENT: alert, awake, oriented to person, oriented to place, oriented to time, oriented to situation, CN II-XII grossly intact. ABSENT: motor sensory deficit Results Laboratory Results: 02/04/19 07:02 02/04/19 14:23 02/03/19 02/04/19 02/04/19 21:04 07:02 07:02 WBC 6.0 RBC 4.10 L Hgb 11.5 L Hct 34.2 L MCV 83 MCH 28.0 MCHC 33.5 RDW 14.3 H Plt Count 214 Seg Neutrophils % 59.4 Sodium 138.6 138.4 Potassium 4.9 4.7 Chloride 109 H 108 H Carbon Dioxide 22 24 Anion Gap 8 6 BUN 30 H 25 H Creatinine 1.48 H 1.39 H Est GFR ( Amer) > 60 > 60 Glucose 220 H 183 H Calcium 9.0 9.3 Total Bilirubin 0.3 AST 20 Alkaline Phosphatase 107 Total Protein 6.2 L Albumin 3.4 L Triglycerides Cholesterol LDL Cholesterol Direct HDL Cholesterol 02/04/19 14:23 WBC RBC Hgb Hct MCV MCH MCHC RDW Plt Count Seg Neutrophils % Sodium 136.9 L Potassium 4.7 Chloride 107 Carbon Dioxide 23 Anion Gap 7 BUN 22 H Creatinine 1.42 H Est GFR ( Amer) > 60 Glucose 155 H Calcium 9.3 Total Bilirubin AST Alkaline Phosphatase Total Protein Albumin Triglycerides 1062 H Cholesterol 318.16 H LDL Cholesterol Direct 68 HDL Cholesterol 29 L 02/02/19 17:09 Throat Throat Culture - Final NORMAL HEATH 02/02/19 02/02/19 17:10 17:10 Creatine Kinase 80 CK-MB (CK-2) 0.84 Troponin I < 0.012 NT-Pro-B Natriuret Pep 97 Impressions: Chest X-Ray 02/02/19 20:00 IMPRESSION: No acute disease. copyright 2010 [employer]- All Rights Reserved Assessment and Plan - Diagnosis (1) Uncontrolled diabetes mellitus Qualifiers: Diabetes mellitus type: type 2 Glycemic state: with hyperglycemia Qualified Code(s): E11.65 - Type 2 diabetes mellitus with hyperglycemia Is this a current diagnosis for this admission?: Yes Plan: Improving. Not optimized. Hemoglobin A1c 12%. Diabetic diet, diabetic education, long-acting insulin, pre-meal insulin, sliding scale insulin, Accu-Chek, hypoglycemic protocol. Hold metformin due to DANIELA. Will restart if DANIELA resolved. GFR >60 patient can be restarted on metformin upon discharge. Patient will be discharged on insulin follow-up with PCP for readjustment. Patient counseled and advised on medical and dietary compliance. (2) DANIELA (acute kidney injury) Is this a current diagnosis for this admission?: Yes Plan: Improving. Electrolytes WNL. Prerenal to severe dehydration VS type IV RTA and possibly metformin. Monitor volume status closely. Avoid nephrotoxic meds. CMP in a.m. (3) Dehydration Is this a current diagnosis for this admission?: Yes Plan: Volume replete. Monitor volume status. Encourage p.o. intake. Treat underlying diabetes. (4) Hyperkalemia Is this a current diagnosis for this admission?: Yes Plan: Resolved. (5) Necrobiosis diabeticorum Is this a current diagnosis for this admission?: Yes Plan: Versus venous stasis, optimize diabetic control, HENOK stockings (6) Morbid obesity Is this a current diagnosis for this admission?: Yes Plan: Likely due to excessive calorie intake. We will check for hypothyroidism. May benefit from bariatric intervention. Diet and lifestyle modification recommended. TSH WNL. Lipid panel was obtained unfortunately was not fasting and lipid panel was abnormal. Will repeat tomorrow in am.
[2019-02-04 21:31] LABS: ANION GAP 9 (5-19); BLOOD UREA NITROGEN 23 mg/dL (7-20); CALCIUM 9.3 mg/dL (8.4-10.2); CARBON DIOXIDE 21 mmol/L (22-30); CHLORIDE 105 mmol/L (98-107); GLUCOSE 165 mg/dL (75-110); POTASSIUM 4.6 mmol/L (3.6-5.0)
[2019-02-05 05:10] LABS: ABSOLUTE EOSINOPHILS # (AUTO) 0.2 10^3/uL (0.0-0.6); ABSOLUTE LYMPHOCYTES (AUTO) 2.4 10^3/uL (0.5-4.7); ABSOLUTE MONOCYTES (AUTO) 0.7 10^3/uL (0.1-1.4); ABSOLUTE NEUT (AUTO) 4.1 10^3/uL (1.7-8.2); BASOPHILS % (AUTO) 0.7 % (0-2); EOSINOPHILS % (AUTO) 2.7 % (0-6); HEMATOCRIT 33.8 % (37.9-51.0); HEMOGLOBIN 11.4 g/dL (13.5-17.0); LYMPHOCYTES % (AUTO) 32.1 % (13-45); MEAN CORPUSCULAR HEMOGLOBIN 28.3 pg (27.0-33.4); MEAN CORPUSCULAR HGB CONC 33.8 g/dL (32.0-36.0); MEAN CORPUSCULAR VOLUME 84 fl (80-97); MONOCYTES % (AUTO) 9.1 % (3-13); PLATELET COUNT 219 10^3/uL (150-450); RED BLOOD COUNT 4.04 10^6/uL (4.35-5.55); RED CELL DISTRIBUTION WIDTH 14.6 % (11.5-14.0); SEGMENTED NEUTROPHILS % (AUTO) 55.4 % (42-78); TOTAL CELLS COUNTED % (AUTO) 100 %; WHITE BLOOD COUNT 7.3 10^3/uL (4.0-10.5)
[2019-02-05 05:22] LABS: ALBUMIN 3.4 g/dL (3.5-5.0); ALKALINE PHOSPHATASE 98 U/L (38-126); ANION GAP 6 (5-19); ASPARTATE AMINO TRANSFERASE 20 U/L (17-59); BILIRUBIN,DIRECT 0.1 mg/dL (0.0-0.4); BILIRUBIN,TOTAL 0.4 mg/dL (0.2-1.3); BLOOD UREA NITROGEN 19 mg/dL (7-20); CALCIUM 9.4 mg/dL (8.4-10.2); CARBON DIOXIDE 26 mmol/L (22-30); CHLORIDE 107 mmol/L (98-107); CHOLESTEROL 308.15 mg/dL (0-200); GLUCOSE 133 mg/dL (75-110); POTASSIUM 4.6 mmol/L (3.6-5.0); TOTAL PROTEIN 6.2 g/dL (6.3-8.2)
[2019-02-05 05:33] LABS: DIRECT LDL 75 mg/dL (<100)
[2019-02-05 05:38] LABS: TRIGLYCERIDES 989 mg/dL (<150)
[2019-02-05] MEDS: HEPARIN SOD (PORCINE) 5,000 UNIT/ML 1 ML VIAL SUBCUT SCH ×2 (05:52→14:23)
[2019-02-05] MEDS: INSULIN LISPRO 100 UNIT/ML 3 ML VIAL SUBCUT SCH ×2 (07:46→13:00)
[2019-02-05] MEDS: ACETAMINOPHEN 325 MG TABLET PO PRN (08:39)
[2019-02-05] MEDS: INSULIN GLARGINE,HUM.REC.ANLOG 1,000 UNIT/10 ML VIAL SUBCUT SCH (08:40)
[2019-02-05] MEDS: DOCUSATE SODIUM 100 MG CAPSULE PO SCH (09:29)
[2019-02-05] MEDS ORDERED: ATORVASTATIN CALCIUM 40 MG TABLET PO ONE ×2 (09:31)
[2019-02-05] MEDS ORDERED: OMEGA-3 ACID ETHYL ESTERS 1 GM CAPSULE PO ONE (09:31)
[2019-02-05 14:06] VITALS: BP 128/81
[2019-02-05 14:11] LABS: CHOLESTEROL 323.06 mg/dL (0-200)
[2019-02-05 14:22] LABS: DIRECT LDL 79 mg/dL (<100)
[2019-02-05 14:28] LABS: TRIGLYCERIDES 926 mg/dL (<150)
--- NOTE | 2019-02-09 14:26 | PDOC DISCHARGE SUMMARY ---
General - Admit/Disc Date/PCP Admission Date/Primary Care Provider: 02/02/19 21:17 SUSAN VALDEZ MD Discharge Date: 02/05/19 - Discharge Diagnosis (1) Uncontrolled diabetes mellitus Is this a current diagnosis for this admission?: Yes (2) Hyperlipidemia Is this a current diagnosis for this admission?: Yes (3) DANIELA (acute kidney injury) Is this a current diagnosis for this admission?: Yes (4) Dehydration Is this a current diagnosis for this admission?: Yes (5) Hyperkalemia Is this a current diagnosis for this admission?: Yes (6) Necrobiosis diabeticorum Is this a current diagnosis for this admission?: Yes (7) Morbid obesity Is this a current diagnosis for this admission?: Yes - Additional Information Resuscitation Status: Full Code Discharge Diet: Diabetic Discharge Activity: Activity As Tolerated, Balance Activity w/Rest Prescriptions: [place]-3 Fatty Acids/Fish Oil [Fish Oil 1,000 Mg Capsule] 2 each PO BID 30 Days #60 capsule Insulin Detemir [Levemir] 30 unit SQ QHS 30 Days #3 vial Atorvastatin Calcium [Lipitor 80 mg Tablet] 80 mg PO QHS 30 Days #30 tablet Metformin HCl 500 mg PO BID 30 Days #60 tablet Insulin Aspart [Novolog Flexpen] 1 - 12 unit SUBCUT .SLD SCALE 30 Days #3 pen Home Medications: Insulin Aspart [Novolog Flexpen] 1 - 12 unit SUBCUT .SLD SCALE 30 Days #3 pen 02/04/19 Insulin Detemir [Levemir] 30 unit SQ QHS 30 Days #3 vial 02/04/19 Metformin HCl 500 mg PO BID 30 Days #60 tablet 02/04/19 Atorvastatin Calcium [Lipitor 80 mg Tablet] 80 mg PO QHS 30 Days #30 tablet 02/05/19 [place]-3 Fatty Acids/Fish Oil [Fish Oil 1,000 Mg Capsule] 2 each PO BID 30 Days #60 capsule 02/05/19 History of Present Illness History of Present Illness: JOZEF RICHARDS is a 53 year old male with a past medical history of hypertension, gout and diabetes. He presents with 1 week of fatigue generalized headache, polyuria polydipsia and anorexia. He denies fever, shortness of breath or chest pain. In the emergency room he is found to have hypotension, mild metabolic acidosis, hyperglycemia, hyperkalemia and acute renal failure. He denies recent change of medication regiment continuing metformin, hydrochlorothiazide and lisinopril. He denies recent primary care, indomethacin or NSAID use. He is referred to the hospitalist for admission. Hospital Course Hospital Course: (1) Uncontrolled diabetes mellitus Improved. Hemoglobin A1c 12%. Was started on diabetic diet, diabetic education, long-acting insulin, pre-meal insulin, sliding scale insulin, Accu-Chek, hypoglycemic protocol. Held metformin due to DANIELA. GFR back to >60 patient was discharged on metformin 500 bid, to follow up with PCP for dose adjustment based on renal fucntion. He was also discharged on Lantus, Sliding scale insulin to follow-up with PCP for readjustment. Patient extensively counseled and advised on medical and dietary compliance. (2) Hyperlipidemia Mixed. Initial lipid panel was repeated as it was thought to be elevated due the fact that it was not a fasting lipid panel. Repeat lipid panel was still abnormal. Pt was started on high intensity statins and fish oil, and was highly encouraged to stay inpatient while his high triglycerides were treated to lower the risk of acute pancreatitis, unfortunately he insisted on being discharged. He was discharged on Atorvastatin 80mg QHS, Fish oil 2000 mg bid. He was not started on fibrates to lower the risk of Statins toxicity. He was counseled on low fat diet, good diabetes control and medication compliance. He was highly encouraged to follow up with pcp, to recheck his lipid panel and readjust his meds. An appointment with PCP was arranged. Pt was also given a lab order for lipid panel to be done before following up with PCP. He was highly encouraged to come back to ED if any abdominal pain or any sign of pancreatitis. Pt voice understanding. (3) DANIELA (acute kidney injury) Improved. Creatinine back to baseline. Electrolytes WNL. Prerenal to severe dehydration VS type IV RTA and possibly metformin. Follow up with PCP and Nephrology. (4) Dehydration Volume replete. Monitor volume status. Encourage p.o. intake. Treat underlying diabetes. (5) Hyperkalemia Likely due to Daniela. Resolved. (6) Necrobiosis diabeticorum Versus venous stasis, optimize diabetic control, HENOK stockings (7) Morbid obesity Likely due to excessive calorie intake. We will check for hypothyroidism. May benefit from bariatric intervention. Diet and lifestyle modification recommended. TSH WNL. Physical Exam Vital Signs: Temp Pulse Resp BP Pulse Ox 97.7 F 87 18 128/81 H 100 02/05/19 15:07 02/05/19 15:07 02/05/19 15:07 02/05/19 15:07 02/05/19 15:07 General appearance: PRESENT: obese Respiratory exam: PRESENT: clear to auscultation isabelle. ABSENT: rales, rhonchi, wheezes Cardiovascular exam: PRESENT: RRR. ABSENT: diastolic murmur, rubs, systolic murmur Pulses: PRESENT: normal dorsalis pedis pul GI/Abdominal exam: PRESENT: normal bowel sounds, soft. ABSENT: distended, guarding, mass, organolmegaly, rebound, tenderness Neurological exam: PRESENT: alert, awake, oriented to person, oriented to place, oriented to time, oriented to situation, CN II-XII grossly intact. ABSENT: motor sensory deficit Skin exam: PRESENT: other - Left leg below knee, anterior najera waxy plaque likely necrobiosis diabeticorum, no sign of infection. Results Laboratory Results: 02/05/19 04:46 02/05/19 04:46 02/02/19 02/02/19 17:10 17:10 Creatine Kinase 80 CK-MB (CK-2) 0.84 Troponin I < 0.012 NT-Pro-B Natriuret Pep 97 Impressions: Chest X-Ray 02/02/19 20:00 IMPRESSION: No acute disease. copyright 2010 [employer]- All Rights Reserved Qualifiers - * PATIENT BEING DISCHARGED WITH ANY OF THE FOLLOWING DIAGNOSIS: No Acute Heart Failure - Is this a Heart Failure Patient?: No
== END 2019-02-05 15:45 | disposition home or self-care (01) | DRG 638 ==
LOC: ER 15:34 → EH 21:17 → 5 22:55
PROVIDERS: ADMIT Internal Medicine; ATTEND Internal Medicine
DX: E11.10 Type 2 diabetes mellitus with ketoacidosis without coma (principal); N17.9 Acute kidney failure, unspecified; E11.65 Type 2 diabetes mellitus with hyperglycemia; E86.0 Dehydration; E87.5 Hyperkalemia; E66.01 Morbid (severe) obesity due to excess calories; I10 Essential (primary) hypertension; M10.9 Gout, unspecified; E11.620 Type 2 diabetes mellitus with diabetic dermatitis; Z79.4 Long term (current) use of insulin; Z83.3 Family history of diabetes mellitus; Z82.49 Family history of ischemic heart disease and other diseases of the circulatory system
CPT/HCPCS: 36415; 71045; 80048; 80053; 80061; 81001; 82550; 82553; 82962; 83036; 83735; 83880; 84443; 84484; 85025; 87070; 87880; 93005; 93010; 96360; 96361; 99285; J1644; J1815; J7030

== ENCOUNTER 2019-02-10 17:07 | Observation (INO) | payer BC ==
[2019-02-10] MEDS ORDERED: CLINDAMYCIN 300 MG/D5W RTU 300 MG/50 ML RTUPB IV ONE (17:50)
--- NOTE | 2019-02-10 17:53 | ER Document Report ---
ED Medical Screen (RME) - General Chief Complaint: Leg Swelling Stated Complaint: LEG SWELLING Time Seen by Provider: 02/10/19 17:44 Primary Care Provider: SUSAN VALDEZ MD [Primary Care Provider] - Follow up as needed Notes: Patient is a 53-year-old male presents emergency room with a chief complaint of right lower extremity swelling and redness. He has had this for the past week or 2. He was recently admitted to the hospital for dehydration. Patient states that his right leg has gotten bigger and more painful. Exam: Hot, erythematous right lower extremity. 3+ pitting edema to right lower extremity. Patient will be sent for a venous Doppler ultrasound to rule out DVT. I have greeted and performed a rapid initial assessment of this patient. A comprehensive ED assessment and evaluation of the patient, analysis of test results and completion of medical decision making process will be conducted by an additional ED providers. TRAVEL OUTSIDE OF THE [place] IN LAST 30 DAYS: No - Related Data Allergies/Adverse Reactions: No Known Allergies Allergy (Verified 02/02/19 15:39) Past Medical History - Social History Chew tobacco use (# tins/day): No Frequency of alcohol use: None Drug Abuse: None - Past Medical History Cardiac Medical History: Reports: Hx Hypertension Endocrine Medical History: Reports: Hx Diabetes Mellitus Type 2 Renal/ Medical History: Denies: Hx Peritoneal Dialysis Past Surgical History: Reports: Hx Abdominal Surgery - diverticulitis, Hx Herniorrhaphy Physical Exam - Vital signs Vitals: Temp Pulse Resp BP Pulse Ox 99.0 F 102 H 16 135/82 H 95 02/10/19 17:12 02/10/19 17:12 02/10/19 17:12 02/10/19 17:12 02/10/19 17:12 Course - Vital Signs Vital signs: Temp Pulse Resp BP Pulse Ox 99.0 F 102 H 16 135/82 H 95 02/10/19 17:12 02/10/19 17:12 02/10/19 17:12 02/10/19 17:12 02/10/19 17:12 Doctor's Discharge - Discharge Referrals: SUSAN VALDEZ MD [Primary Care Provider] - Follow up as needed
[2019-02-10 18:37] LABS: ABSOLUTE EOSINOPHILS # (AUTO) 0.2 10^3/uL (0.0-0.6); ABSOLUTE LYMPHOCYTES (AUTO) 1.7 10^3/uL (0.5-4.7); ABSOLUTE MONOCYTES (AUTO) 0.9 10^3/uL (0.1-1.4); ABSOLUTE NEUT (AUTO) 6.6 10^3/uL (1.7-8.2); BASOPHILS % (AUTO) 0.5 % (0-2); EOSINOPHILS % (AUTO) 2.5 % (0-6); HEMATOCRIT 33.6 % (37.9-51.0); HEMOGLOBIN 11.4 g/dL (13.5-17.0); MEAN CORPUSCULAR HGB CONC 33.9 g/dL (32.0-36.0); MEAN CORPUSCULAR VOLUME 83 fl (80-97); MONOCYTES % (AUTO) 9.6 % (3-13); PLATELET COUNT 281 10^3/uL (150-450); RED BLOOD COUNT 4.07 10^6/uL (4.35-5.55); RED CELL DISTRIBUTION WIDTH 14.4 % (11.5-14.0); SEGMENTED NEUTROPHILS % (AUTO) 69.4 % (42-78); TOTAL CELLS COUNTED % (AUTO) 100 %; WHITE BLOOD COUNT 9.5 10^3/uL (4.0-10.5)
[2019-02-10 19:04] LABS: ALBUMIN 4.1 g/dL (3.5-5.0); ALKALINE PHOSPHATASE 111 U/L (38-126); ANION GAP 11 (5-19); ASPARTATE AMINO TRANSFERASE 28 U/L (17-59); BILIRUBIN,DIRECT 0.2 mg/dL (0.0-0.4); BILIRUBIN,TOTAL 0.7 mg/dL (0.2-1.3); BLOOD UREA NITROGEN 24 mg/dL (7-20); CALCIUM 9.6 mg/dL (8.4-10.2); CARBON DIOXIDE 27 mmol/L (22-30); CHLORIDE 103 mmol/L (98-107); GLUCOSE 165 mg/dL (75-110); POTASSIUM 4.4 mmol/L (3.6-5.0); TOTAL PROTEIN 7.1 g/dL (6.3-8.2)
[2019-02-10 20:47] LABS: INTERNATIONAL RATION (INR) 1.06; PROTHROMBIN TIME 13.8 SEC (11.4-15.4)
[2019-02-10 20:48] LABS: PARTIAL THROMBOPLASTIN TIME 33.6 SEC (23.5-35.8)
--- NOTE | 2019-02-10 20:49 | ER Document Report ---
ED Extremity Problem, Lower - General Chief Complaint: Leg Swelling Stated Complaint: LEG SWELLING Time Seen by Provider: 02/10/19 17:44 Mode of Arrival: Ambulatory Information source: Patient Notes: 53-year-old male presents to ED for complaint of right lower extremity redness swelling and pain. He states the pain and swelling started on Thursday it got much worse on Thursday he was admitted to the hospital for elevated blood sugars and was given antibiotics he stated continued to get bigger while he was in the hospital. He states he mentioned it to the doctor that they were more concerned about his sugars. He states he was discharged on Thursday and then on Thursday of this week started becoming more red inflamed and hot. He states he tried to get into his primary doctor but they did not have a available appointment and was going to be seen next week but he stated that he thought this was given to bag red and hot to wait till Thursday so he came to the emergency room. Before I saw him a Doppler was ordered and he has a DVT in his popliteal saphenous and femoral veins. His leg is red from the foot all the way to the top of the thigh it is warm to the touch he states it is progressed throughout the week. He does have 3+ pitting edema to the right lower extremity. It is much larger than the left. TRAVEL OUTSIDE OF THE [place] IN LAST 30 DAYS: No - HPI Patient complains to provider of: Pain, Swelling - Erythema Location: Knee, Leg, Thigh - Entire right leg Occurred: Last week Onset/Duration: Gradual, Worse Quality of pain: Pressure, Sharp, Throbbing Severity: Moderate Pain Level: 4 Recent injury: No Associated symptoms: Painful ambulation Exacerbated by: Hanging down, Movement, Walking Relieved by: Nothing - Related Data Allergies/Adverse Reactions: No Known Allergies Allergy (Verified 02/02/19 15:39) Past Medical History - General Information source: Patient - Social History Smoking Status: Never Smoker Chew tobacco use (# tins/day): No Frequency of alcohol use: None Drug Abuse: None Family History: DM, Hypertension Patient has suicidal ideation: No Patient has homicidal ideation: No - Past Medical History Cardiac Medical History: Reports: Hx Hypercholesterolemia, Hx Hypertension Pulmonary Medical History: Reports: None EENT Medical History: Reports: None Neurological Medical History: Reports: None Endocrine Medical History: Reports: Hx Diabetes Mellitus Type 2 Renal/ Medical History: Reports: None Malignancy Medical History: Reports None GI Medical History: Reports: Hx Diverticulitis, Hx Colonoscopy, Hx Endoscopy Musculoskeletal Medical History: Reports None Skin Medical History: Reports Hx Cellulitis Psychiatric Medical History: Reports: None Traumatic Medical History: Reports: None Infectious Medical History: Reports: None Past Surgical History: Reports: Hx Abdominal Surgery - diverticulitis, Hx Appendectomy - Immunizations Immunizations up to date: Yes Hx Diphtheria, Pertussis, Tetanus Vaccination: Yes Review of Systems - Review of Systems Constitutional: No symptoms reported EENT: No symptoms reported Cardiovascular: No symptoms reported Respiratory: No symptoms reported Gastrointestinal: No symptoms reported Genitourinary: No symptoms reported Male Genitourinary: No symptoms reported Musculoskeletal: No symptoms reported Skin: Change in color, Other - Erythematous swollen tender 3+ edema Hematologic/Lymphatic: No symptoms reported Neurological/Psychological: No symptoms reported -: Yes All other systems reviewed and negative Physical Exam - Vital signs Vitals: Temp Pulse Resp BP Pulse Ox 99.0 F 102 H 16 135/82 H 95 02/10/19 17:12 02/10/19 17:12 02/10/19 17:12 02/10/19 17:12 02/10/19 17:12 Interpretation: Normal - General General appearance: Appears well, Alert - HEENT Head: Normocephalic, Atraumatic Eyes: Normal Pupils: PERRL - Respiratory Respiratory status: No respiratory distress Chest status: Nontender Breath sounds: Normal Chest palpation: Normal - Cardiovascular Rhythm: Regular Heart sounds: Normal auscultation Murmur: No - Abdominal Inspection: Normal Distension: No distension Bowel sounds: Normal Tenderness: Nontender Organomegaly: No organomegaly - Back Back: Normal, Nontender - Extremities General upper extremity: Normal inspection, Nontender, Normal color, Normal ROM, Normal temperature General lower extremity: Normal ROM, Normal temperature. No: Davey's sign Thigh: Tender - Erythematous edematous painful entire right leg Knee: Tender - Erythematous edematous painful entire right leg Calf: Tender - Erythematous edematous painful entire right leg Ankle: Tender - Erythematous edematous painful entire right leg - Neurological Neuro grossly intact: Yes Cognition: Normal Orientation: AAOx4 [place] Coma Scale Eye Opening: Spontaneous Sushila Coma Scale Verbal: Oriented [place] Coma Scale Motor: Obeys Commands Sushila Coma Scale Total: 15 Speech: Normal Motor strength normal: LUE, RUE, LLE, RLE Sensory: Normal - Psychological Associated symptoms: Normal affect, Normal mood - Skin Skin Temperature: Warm Skin Moisture: Dry Skin Color: Normal Course - Re-evaluation Re-evalutation: 02/10/19 21:[address] Sanches who stated the patient needed to be admitted. Patient's primary doctor does not admit to the hospital. He was admitted to the hospital last week and was discharged home on Thursday with the pain and and edema to this leg but not as bad as it is now according to the patient. Doppler tech states there are 3 DVTs one in the popliteal one in the greater saphenous and one in the femoral vein. The leg is red from the foot to the groin very edematous. Tender to palpation I did speak with the hospitalist and he has agreed to admit him to the medical floor. - Vital Signs Vital signs: Temp Pulse Resp BP Pulse Ox 98.2 F 102 H 16 128/85 H 100 02/10/19 23:30 02/10/19 23:30 02/10/19 23:30 02/10/19 23:30 02/10/19 23:30 - Laboratory Result Diagrams: 02/10/19 18:17 02/10/19 18:17 Laboratory results interpreted by me: 02/10/19 02/10/19 18:17 18:17 RBC 4.07 L Hgb 11.4 L Hct 33.6 L RDW 14.4 H BUN 24 H Creatinine 1.52 H Est GFR ( Amer) 58 L Est GFR (MDRD) Non-Af 48 L Glucose 165 H Discharge - Discharge Clinical Impression: Dvt femoral (deep venous thrombosis) Disposition: ADMITTED INPATIENT Admitting Provider: Rosalba (Hospitalist) Unit Admitted: Medical Floor
--- NOTE | 2019-02-10 21:13 | RADIOLOGY REPORT (SQ) ---
Right lower extremity duplex venous ultrasonography HISTORY: Right lower extremity pain, swelling, rule out DVT. Technique: Duplex venous ultrasonography including color and spectral flow Doppler imaging was performed in right lower extremity, focusing on the deep venous system. FINDINGS: There is evidence for thrombosis in the right distal femoral vein and popliteal vein. Also thrombosis in the greater saphenous vein. The infrapopliteal calf veins are patent. IMPRESSION: Consistent with acute DVT in the right femoral popliteal veins. Right GSV thrombosis as well.
[2019-02-10] MEDS ORDERED: MAGNESIUM HYDROXIDE SUSP 30 ML UDCUP PO PRN (21:34)
[2019-02-10] MEDS ORDERED: MAG HYDROX/AL HYDROX/SIMETH SUSP 30 ML UDCUP PO PRN (21:34)
[2019-02-10] MEDS ORDERED: ONDANSETRON HCL INJ/PF 4 MG/2 ML SDV IV PRN (21:34)
[2019-02-10] MEDS ORDERED: DEXTROSE 50%-WATER 25 GM/50 ML DISP.SYRIN IV PRN ×2 (21:39)
[2019-02-10] MEDS ORDERED: INSULIN REG, HUMAN 100 UNIT/ML 3 ML VIAL (PYX) SUBCUT PRN (21:39)
[2019-02-10] MEDS ORDERED: GLUCAGON,HUMAN RECOMB 1 MG INJ IM PRN (21:39)
[2019-02-10] MEDS ORDERED: ACETAMINOPHEN 325 MG TABLET PO PRN (21:39)
[2019-02-10] MEDS ORDERED: NALBUPHINE HCL INJ 10 MG/1 ML AMPULE IV PRN (21:39)
[2019-02-10] MEDS ORDERED: DEXTROSE 40% GEL 15 GM TUBE PO PRN ×2 (21:39)
[2019-02-11] MEDS: APIXABAN 5 MG TABLET PO SCH ×3 (00:52→17:21)
[2019-02-11] MEDS: ATORVASTATIN CALCIUM 80 MG TABLET PO SCH ×2 (00:52→21:36)
[2019-02-11] MEDS: FAMOTIDINE 20 MG TABLET PO SCH ×3 (00:52→21:37)
[2019-02-11] MEDS ORDERED: INSULIN GLARGINE,HUM.REC.ANLOG 1,000 UNIT/10 ML VIAL (PYX) SUBCUT ONE (01:05)
[2019-02-11] MEDS: INSULIN GLARGINE,HUM.REC.ANLOG 1,000 UNIT/10 ML VIAL SUBCUT SCH ×2 (01:06→21:38)
--- NOTE | 2019-02-11 04:31 | PDOC H&P ---
History of Present Illness Admission Date/PCP: 02/10/2019 20:50 SUSAN VALDEZ MD Patient complains of: Right lower extremity pain History of Present Illness: JOZEF RICHARDS is a 53 year old male who presented to the emergency room with right lower extremity pain. He admits the gradual development of pain in his right lower extremity 2 weeks ago with gradually worsening pain and beginning 3 days prior to this visit the pain has also been associated with progressively worsening redness, warmth to touch and swelling to the point where the pain is now exquisitely severe. Patient's ambulation is limited due to the pain in his right lower extremity. The redness, warmth, swelling and pain are noted throughout the entirety of the right lower extremity from the thigh down to the ankle and there is no radiation of the pain. Patient denies prior similar episodes and has not identified any aggravating or ameliorating factors for his right lower extremity pain. In the emergency room patient was found to have a normal white blood count and to be afebrile. An ultrasound of his right lower extremity showed multiple DVTs and the patient was subsequently admitted to the hospital for further evaluation and treatment. Past Medical History Cardiac Medical History: Reports: Hyperlipidema Denies: Coronary Artery Disease, DVT, Hypertension, Pulmonary Embolism Pulmonary Medical History: Denies: Asthma, Chronic Obstructive Pulmonary Disease (COPD) EENT Medical History: Denies: Cataracts, Ears - Hearing aids Neurological Medical History: Denies: Hemorrhagic CVA, Ischemic CVA, Seizures Endocrine Medical History: Reports: Diabetes Mellitus Type 2, Obesity Denies: Diabetes Mellitus Type 1, Hyperthyroidism, Hypothyroidism Renal/ Medical History: Reports: Chronic Kidney Disease Denies: Nephrolithiasis Malignancy Medical History: Reports: None GI Medical History: Denies: Cirrhosis, Crohn's Disease, Hepatitis, Ulcerative Colitis Musculoskeltal Medical History: Denies: Arthritis, Gout Skin Medical History: Denies: Eczema, Psoriasis Psychiatric Medical History: Denies: Alcohol Dependency, Substance Abuse, Tobacco Dependency Traumatic Medical History: Reports: None Hematology: Denies: Anemia, Bleeding Tendencies Infectious Medical History: Reports: None Past Surgical History Past Surgical History: Reports: Appendectomy, Herniorrhaphy, Other - Meckel's diverticulum Social History Information Source: Patient Lives with: Alone Smoking Status: Never Smoker Frequency of Alcohol Use: None Hx Recreational Drug Use: No Drugs: None Hx Prescription Drug Abuse: No - Advance Directive Resuscitation Status: Full Code Surrogate healthcare decision maker:: Priscila Baileynash Family History Family History: DM, Hypertension Parental Family History Reviewed: Yes Children Family History Reviewed: No Sibling(s) Family History Reviewed.: Yes Medication/Allergy Home Medications: Insulin Aspart [Novolog Flexpen] 1 - 12 unit SUBCUT .SLD SCALE 30 Days #3 pen 02/04/19 Insulin Detemir [Levemir] 30 unit SQ QHS 30 Days #3 vial 02/04/19 Metformin HCl 500 mg PO BID 30 Days #60 tablet 02/04/19 Atorvastatin Calcium [Lipitor 80 mg Tablet] 80 mg PO QHS 30 Days #30 tablet 02/05/19 [place]-3 Fatty Acids/Fish Oil [Fish Oil 1,000 Mg Capsule] 2 each PO BID 30 Days #60 capsule 02/05/19 Allergies/Adverse Reactions: No Known Allergies Allergy (Verified 02/02/19 15:39) Review of Systems Constitutional: ABSENT: chills, fever(s) Eyes: ABSENT: visual disturbances, other - Eye pain Ears: ABSENT: hearing changes, other - Ear pain Nose, Mouth, and Throat: ABSENT: mouth pain, sore throat Cardiovascular: ABSENT: chest pain, palpitations Respiratory: ABSENT: cough, dyspnea Gastrointestinal: ABSENT: abdominal pain, constipation, diarrhea, nausea, vomiting Genitourinary: ABSENT: dysuria, hematuria Musculoskeletal: ABSENT: back pain, joint swelling, muscle weakness Integumentary: ABSENT: pruritus, rash Neurological: ABSENT: confusion, convulsions, focal weakness, memory loss, syncope Psychiatric: ABSENT: anxiety, depression Endocrine: ABSENT: cold intolerance, heat intolerance Hematologic/Lymphatic: ABSENT: easy bleeding, easy bruising Allergic/Immunologic: ABSENT: seasonal rhinorrhea Physical Exam Vital Signs: Temp Pulse Resp BP Pulse Ox 99.0 F 102 H 16 135/82 H 95 02/10/19 17:12 02/10/19 17:12 02/10/19 17:12 02/10/19 17:12 02/10/19 17:12 Intake & Output 02/08/19 02/09/19 02/10/19 23:59 23:59 23:59 Intake Total 50 Balance 50 Weight 126.3 kg General appearance: PRESENT: no acute distress, cooperative, obese Head exam: PRESENT: atraumatic, normocephalic Eye exam: ABSENT: conjunctival injection, conjunctiva pink, scleral icterus Ear exam: PRESENT: normal external ear exam. ABSENT: bleeding, drainage Mouth exam: PRESENT: dry mucosa, neck supple Neck exam: ABSENT: thyromegaly, tracheal deviation Respiratory exam: PRESENT: clear to auscultation isabelle, symmetrical, unlabored Cardiovascular exam: PRESENT: RRR. ABSENT: clicks, gallop, rubs Pulses: PRESENT: normal carotid pulses, normal radial pulses. ABSENT: normal dorsalis pedis pul - Right lower extremity dorsalis pedis pulse diminished due to edema Vascular exam: PRESENT: normal capillary refill. ABSENT: pallor GI/Abdominal exam: PRESENT: normal bowel sounds, soft Rectal exam: PRESENT: deferred Extremities exam: PRESENT: pedal edema - Right, +2 edema - 2+ pitting edema with erythema, calor and dolor of the right lower extremity with marked tenderness on palpation and palpable venous cords present.. ABSENT: joint swelling Musculoskeletal exam: ABSENT: deformity, dislocation Neurological exam: PRESENT: alert, oriented to person, oriented to place, orie nted to time, oriented to situation, CN II-XII grossly intact. ABSENT: motor sensory deficit Psychiatric exam: PRESENT: appropriate affect, normal mood Skin exam: PRESENT: dry, intact, warm. ABSENT: jaundice, rash, urticaria Results Laboratory Results: 02/10/19 18:17 02/10/19 18:17 02/10/19 02/10/19 18:17 18:17 WBC 9.5 RBC 4.07 L Hgb 11.4 L Hct 33.6 L MCV 83 MCH 28.0 MCHC 33.9 RDW 14.4 H Plt Count 281 Seg Neutrophils % 69.4 Sodium 140.6 Potassium 4.4 Chloride 103 Carbon Dioxide 27 Anion Gap 11 BUN 24 H Creatinine 1.52 H Est GFR ( Amer) 58 L Glucose 165 H Calcium 9.6 Total Bilirubin 0.7 AST 28 Alkaline Phosphatase 111 Total Protein 7.1 Albumin 4.1 Assessment and Plan - Diagnosis (1) Dvt femoral (deep venous thrombosis) Qualifiers: Chronicity: acute Laterality: right Qualified Code(s): I82.411 - Acute embolism and thrombosis of right femoral vein Is this a current diagnosis for this admission?: Yes Plan: Patient will give DVT therapy initiated with Eliquis 5 mg p.o. twice daily. He will receive symptomatic care with elevation of the right lower extremity and a K pad for comfort. He will be reevaluated clinically on an ongoing basis. Daily CBCs and metabolic profiles will be obtained. (2) Pain of right lower extremity Is this a current diagnosis for this admission?: Yes Plan: Patient's right lower extremity pain will be treated with Nubain 5 to 10 mg IV every 3 hours on an as-needed basis per sliding scale for pain. (3) CKD (chronic kidney disease) stage 3, GFR 30-59 ml/min Is this a current diagnosis for this admission?: Yes Plan: Patient's renal function will be monitored closely throughout his hospital stay with daily metabolic profiles. (4) Diabetes mellitus type 2 in obese Is this a current diagnosis for this admission?: Yes Plan: Patient will be continued on his current diabetic therapy and a diabetic diet. Before meals and at bedtime Accu-Cheks will be performed with sliding scale insulin administered for hyperglycemia and a hypoglycemic protocol in place. (5) Hyperlipidemia Qualifiers: Hyperlipidemia type: mixed hyperlipidemia Qualified Code(s): E78.2 - Mixed hyperlipidemia Is this a current diagnosis for this admission?: Yes Plan: Patient will be continued on his current hyperlipidemia therapy. - Time Time Spent with patient: 25-34 minutes Medications reviewed and adjusted accordingly: Yes Anticipated discharge: Home - Inpatient Certification Based on my medical assessment, after consideration of the patient's comorbidities, presenting symptoms, or acuity I expect that the services needed warrant INPATIENT care.: Yes I certify that my determination is in accordance with my understanding of Medicare's requirements for reasonable and necessary INPATIENT services [42 CFR 412.3e].: Yes Medical Necessity: Need for Pain Control, Risk of Complication if Not Cared For in Hospital
[2019-02-11 06:56] LABS: HEMATOCRIT 30.3 % (37.9-51.0); HEMOGLOBIN 10.3 g/dL (13.5-17.0); MEAN CORPUSCULAR HEMOGLOBIN 28.1 pg (27.0-33.4); MEAN CORPUSCULAR VOLUME 83 fl (80-97); PLATELET COUNT 261 10^3/uL (150-450); RED BLOOD COUNT 3.67 10^6/uL (4.35-5.55); RED CELL DISTRIBUTION WIDTH 14.5 % (11.5-14.0); WHITE BLOOD COUNT 8.3 10^3/uL (4.0-10.5)
[2019-02-11 07:18] LABS: ANION GAP 11 (5-19); BLOOD UREA NITROGEN 22 mg/dL (7-20); CALCIUM 8.9 mg/dL (8.4-10.2); CARBON DIOXIDE 24 mmol/L (22-30); CHLORIDE 104 mmol/L (98-107); GLUCOSE 278 mg/dL (75-110); POTASSIUM 4.4 mmol/L (3.6-5.0)
[2019-02-11] MEDS ORDERED: NALBUPHINE HCL INJ 10 MG/1 ML AMPULE IV PRN ×2 (07:48→07:49)
[2019-02-11] MEDS: METFORMIN HCL 500 MG TABLET PO SCH ×2 (07:59→17:22)
[2019-02-11] MEDS: DOCUSATE SODIUM 100 MG CAPSULE PO SCH ×2 (10:06→17:18)
[2019-02-11] MEDS: OXYCODONE-ACETAMINOPHEN 5-325 MG TABLET PO PRN ×2 (10:17→17:21)
[2019-02-11 10:36] LABS: ABSOLUTE EOSINOPHILS # (AUTO) 0.3 10^3/uL (0.0-0.6); ABSOLUTE LYMPHOCYTES (AUTO) 1.6 10^3/uL (0.5-4.7); ABSOLUTE NEUT (AUTO) 6.9 10^3/uL (1.7-8.2); BASOPHILS % (AUTO) 0.5 % (0-2); EOSINOPHILS % (AUTO) 2.9 % (0-6); HEMATOCRIT 32.9 % (37.9-51.0); LYMPHOCYTES % (AUTO) 16.4 % (13-45); MEAN CORPUSCULAR HEMOGLOBIN 27.8 pg (27.0-33.4); MEAN CORPUSCULAR HGB CONC 33.5 g/dL (32.0-36.0); MEAN CORPUSCULAR VOLUME 83 fl (80-97); MONOCYTES % (AUTO) 10.6 % (3-13); PLATELET COUNT 279 10^3/uL (150-450); RED BLOOD COUNT 3.96 10^6/uL (4.35-5.55); RED CELL DISTRIBUTION WIDTH 14.3 % (11.5-14.0); SEGMENTED NEUTROPHILS % (AUTO) 69.6 % (42-78); TOTAL CELLS COUNTED % (AUTO) 100 %; WHITE BLOOD COUNT 9.9 10^3/uL (4.0-10.5)
[2019-02-11 10:59] LABS: ANION GAP 9 (5-19); BLOOD UREA NITROGEN 20 mg/dL (7-20); CALCIUM 9.4 mg/dL (8.4-10.2); CARBON DIOXIDE 27 mmol/L (22-30); CHLORIDE 104 mmol/L (98-107); GLUCOSE 160 mg/dL (75-110); POTASSIUM 4.9 mmol/L (3.6-5.0)
--- NOTE | 2019-02-11 12:52 | PDOC PROGRESS REPORT ---
Subjective Progress Note for:: 02/11/19 Subjective:: 53-year-old male comes in with a day history of right lower leg edema, redness, pain. Patient has a DVT by Doppler examination Reason For Visit: DVT'S RLE Physical Exam Vital Signs: Temp Pulse Resp BP Pulse Ox 98.3 F 91 15 140/79 H 98 02/11/19 07:39 02/11/19 07:39 02/11/19 07:39 02/11/19 07:39 02/11/19 07:39 Intake & Output 02/10/19 02/11/19 02/12/19 06:59 06:59 06:59 Intake Total 310 Balance 310 Weight 127.1 kg General appearance: PRESENT: no acute distress Respiratory exam: PRESENT: clear to auscultation isabelle. ABSENT: rales, rhonchi, wheezes Cardiovascular exam: PRESENT: RRR. ABSENT: diastolic murmur, rubs, systolic murmur Extremities exam: PRESENT: calf tenderness, pedal edema, tenderness, +2 edema, other - Distal thigh knee calf ankle of the right lower extremity all are edematous, warm to the touch. However there does not appear to be any redness. Pulses are present Neurological exam: PRESENT: alert, awake, oriented to person, oriented to place, oriented to time, oriented to situation, CN II-XII grossly intact. ABSENT: motor sensory deficit Psychiatric exam: PRESENT: appropriate affect, normal mood. ABSENT: homicidal ideation, suicidal ideation Results Laboratory Results: 02/11/19 10:26 02/11/19 10:26 02/10/19 02/10/19 02/11/19 18:17 18:17 06:24 WBC 9.5 8.3 RBC 4.07 L 3.67 L Hgb 11.4 L 10.3 L Hct 33.6 L 30.3 L MCV 83 83 MCH 28.0 28.1 MCHC 33.9 34.0 RDW 14.4 H 14.5 H Plt Count 281 261 Seg Neutrophils % 69.4 Sodium 140.6 Potassium 4.4 Chloride 103 Carbon Dioxide 27 Anion Gap 11 BUN 24 H Creatinine 1.52 H Est GFR ( Amer) 58 L Glucose 165 H Calcium 9.6 Total Bilirubin 0.7 AST 28 Alkaline Phosphatase 111 Total Protein 7.1 Albumin 4.1 02/11/19 02/11/19 02/11/19 06:24 10:26 10:26 WBC 9.9 RBC 3.96 L Hgb 11.0 L Hct 32.9 L MCV 83 MCH 27.8 MCHC 33.5 RDW 14.3 H Plt Count 279 Seg Neutrophils % 69.6 Sodium 138.5 140.0 Potassium 4.4 4.9 Chloride 104 104 Carbon Dioxide 24 27 Anion Gap 11 9 BUN 22 H 20 Creatinine 1.17 1.21 Est GFR ( Amer) > 60 > 60 Glucose 278 H 160 H Calcium 8.9 9.4 Total Bilirubin AST Alkaline Phosphatase Total Protein Albumin Impressions: Venous Doppler Study 02/10/19 17:50 IMPRESSION: Consistent with acute DVT in the right femoral popliteal veins. Right GSV thrombosis as well. Assessment and Plan - Diagnosis (1) DVT (deep venous thrombosis) Is this a current diagnosis for this admission?: Yes Plan: 02/11/2019 venous Doppler study of the right lower extremity performed 02/10/2019 showed acute DVT in the right femoral-popliteal veins also the right saphenous vein thrombosis. Infrapopliteal calf veins are patent Patient is currently taking Eliquis 5 mg twice daily Should be noted that when patient was last in the hospital he actually refused heparin on 2 separate occasions. Also evidently on 2 other occasions his echo condition prevented giving the heparin. This was out of potentially 9 occasions to receive heparin (2) Diabetes mellitus type 2 in obese Is this a current diagnosis for this admission?: Yes Plan: Patient will be continued on his current diabetic therapy and a diabetic diet. Before meals and at bedtime Accu-Cheks will be performed with sliding scale insulin administered for hyperglycemia and a hypoglycemic protocol in place. 02/11/2019 patient medications for his diabetes included Levemir 30 units nightly Lexa 500 mg twice daily and a sliding scale of NovoLog On admission serum glucose is 165 later it went up to 278 and now it is down to 160 (3) Morbid obesity Is this a current diagnosis for this admission?: Yes Plan: 02/11/2019 patient's weight is 127 kg and BMI is 38 - Time Time Spent with patient: 35 or more minutes
[2019-02-11] MEDS: LISINOPRIL 10 MG TABLET PO SCH (14:35)
[2019-02-11] MEDS ORDERED: METFORMIN HCL 500 MG TABLET PO SCH (16:00)
[2019-02-12] MEDS: OXYCODONE-ACETAMINOPHEN 5-325 MG TABLET PO PRN (03:11)
[2019-02-12 06:02] LABS: HEMATOCRIT 30.8 % (37.9-51.0); HEMOGLOBIN 10.5 g/dL (13.5-17.0); MEAN CORPUSCULAR VOLUME 82 fl (80-97); PLATELET COUNT 282 10^3/uL (150-450); RED BLOOD COUNT 3.74 10^6/uL (4.35-5.55); RED CELL DISTRIBUTION WIDTH 14.2 % (11.5-14.0); WHITE BLOOD COUNT 10.2 10^3/uL (4.0-10.5)
[2019-02-12 06:19] LABS: ANION GAP 11 (5-19); BLOOD UREA NITROGEN 15 mg/dL (7-20); CARBON DIOXIDE 25 mmol/L (22-30); CHLORIDE 104 mmol/L (98-107); GLUCOSE 108 mg/dL (75-110); POTASSIUM 4.3 mmol/L (3.6-5.0)
[2019-02-12] MEDS: DOCUSATE SODIUM 100 MG CAPSULE PO SCH (09:46)
[2019-02-12] MEDS: FAMOTIDINE 20 MG TABLET PO SCH (09:46)
[2019-02-12] MEDS: APIXABAN 5 MG TABLET PO SCH (09:51)
[2019-02-12] MEDS: METFORMIN HCL 500 MG TABLET PO SCH (09:51)
[2019-02-12] MEDS: LISINOPRIL 10 MG TABLET PO SCH (09:51)
--- NOTE | 2019-02-12 10:20 | PDOC DISCHARGE SUMMARY ---
General - Admit/Disc Date/PCP Admission Date/Primary Care Provider: 02/10/19 21:09 SUSAN VALDEZ MD Discharge Date: 02/12/19 - Discharge Diagnosis (1) DVT (deep venous thrombosis) Is this a current diagnosis for this admission?: Yes Summary: Patient was admitted to the hospital for DVT of the right lower extremity, involving the right distal femoral vein and the popliteal vein with thrombosis in the greater saphenous vein as well. The infra popliteal calf veins were normal and patent. Patient states that this pain in the right lower extremity began when he was in the hospital last week for hyperglycemia.. Patient states that the pain worsened about 3 days prior to this admission as well as redness and warmth to the touch patient had been discharged home from the hospital on 02/05/2019. She was started on Eliquis 5 mg twice daily in the emergency room and continued through hospitalization patient also had elevation of the right lower extremity and a K pad for comfort.. Patient was also given Percocet as needed for pain. (2) Diabetes mellitus type 2 in obese Is this a current diagnosis for this admission?: Yes Summary: Patient's hemoglobin A1c upon admission was 11.9 patient states that he has stopped taking his medication for several months prior to this most recent admission.. Patient states that he did this on his own without medical direction. On admission patient was supposed to be taken metformin 500 mg twice daily NovoLog insulin as needed. On admission serum glucose was 165 it went up to 278 and on discharge it is 108. Fingerstick blood sugar this morning is 114 Dr. pieteres are normal, CBC is normal. (3) Morbid obesity Is this a current diagnosis for this admission?: Yes Summary: Admission patient's BMI was 38, with his weight 126 kg. Patient was advised to stick to his diabetic diet and lose weight - Additional Information Resuscitation Status: Full Code Discharge Diet: Diabetic Discharge Activity: Bedrest, Keep Legs Elevated Prescriptions: Apixaban [Eliquis 5 mg Tablet] 5 mg PO BID #60 tablet Oxycodone HCl/Acetaminophen [Percocet 5-325 mg Tablet] 1 tab PO Q6HP PRN #16 tablet PRN Reason: Home Medications: Insulin Aspart [Novolog Flexpen] 1 - 12 unit SUBCUT .SLD SCALE 30 Days #3 pen 02/04/19 Insulin Detemir [Levemir] 30 unit SQ QHS 30 Days #3 vial 02/04/19 Metformin HCl 500 mg PO BID 30 Days #60 tablet 02/04/19 Atorvastatin Calcium [Lipitor 80 mg Tablet] 80 mg PO QHS 30 Days #30 tablet 02/05/19 [place]-3 Fatty Acids/Fish Oil [Fish Oil 1,000 mg Capsule] 2 each PO BID 30 Days #60 capsule 02/05/19 Hydrochlorothiazide [Hydrodiuril 25 mg Tablet] 25 mg PO QAM 02/11/19 Lisinopril [Prinivil 40 mg Tablet] 40 mg PO DAILY 02/11/19 Apixaban [Eliquis 5 mg Tablet] 5 mg PO BID #60 tablet 02/12/19 Lisinopril [Prinivil 10 mg Tablet] 40 mg PO DAILY tablet 02/12/19 Mag Hydrox/Al Hydrox/Simeth [Maalox Plus Susp 30 Udcup] 30 ml PO Q6HP PRN udc 02/12/19 Magnesium Hydroxide [Milk of Magnesia 30 ml Udcup] 30 ml PO HSP PRN udc 02/12/19 Metformin HCl [Glucophage 500 mg Tablet] 500 mg PO BIDACBS tablet 02/12/19 Oxycodone HCl/Acetaminophen [Percocet 5-325 mg Tablet] 1 tab PO Q6HP PRN #16 tablet 02/12/19 History of Present Illness History of Present Illness: JOZEF RICHARDS is a 53 year old male who was admitted to the hospital for right lower leg pain, DVT Hospital Course Hospital Course: Patient was admitted through the emergency room and immediately started on Eliquis 5 mg twice daily following the venous Doppler ultrasound. This revealed DVT in the right lower extremity. She was also given a K pad for the right lower extremity and had the right leg elevated higher than his heart. Patient was maintained on his regular medications plus a sliding scale of insulin patient was given pain medication for his right lower leg. Patient was put in the hospital under observation status. Patient tells me that when he was in the hospital about 10 to 14 days ago he was complaining of right leg pain. During that admission patient was treated with heparin and actually refused heparin on 2 separate occasions.. Patient is being sent home with a prescription for Percocet 09/24/2024 #16 Eliquis 5 mg 1 twice daily #60 and a quad cane patient has appointment with his primary care provider on the 26th of this month. She was advised to keep his right leg elevated, moist heat, and bedrest as much as possible. Physical Exam Vital Signs: Temp Pulse Resp BP Pulse Ox 98.2 F 107 H 20 139/78 H 98 02/12/19 07:59 02/12/19 07:59 02/12/19 07:59 02/12/19 07:59 02/12/19 07:59 Intake & Output 02/11/19 02/12/19 02/13/19 06:59 06:59 06:59 Intake Total 310 1414 Output Total 625 Balance 310 789 Weight 127.1 kg 126.5 kg General appearance: PRESENT: mild distress Respiratory exam: PRESENT: clear to auscultation isabelle. ABSENT: rales, rhonchi, wheezes Cardiovascular exam: PRESENT: RRR. ABSENT: diastolic murmur, rubs, systolic murmur Extremities exam: PRESENT: +1 edema, other - Patient's right lower extremity edema and reddness is much less than yesterday. Neurological exam: PRESENT: alert, awake, oriented to person, oriented to place, oriented to time, oriented to situation, CN II-XII grossly intact. ABSENT: motor sensory deficit Psychiatric exam: PRESENT: appropriate affect, normal mood. ABSENT: homicidal ideation, suicidal ideation Results Laboratory Results: 02/12/19 05:28 02/12/19 05:28 02/11/19 02/11/19 02/12/19 10:26 10:26 05:28 WBC 9.9 10.2 RBC 3.96 L 3.74 L Hgb 11.0 L 10.5 L Hct 32.9 L 30.8 L MCV 83 82 MCH 27.8 28.0 MCHC 33.5 34.0 RDW 14.3 H 14.2 H Plt Count 279 282 Seg Neutrophils % 69.6 Sodium 140.0 Potassium 4.9 Chloride 104 Carbon Dioxide 27 Anion Gap 9 BUN 20 Creatinine 1.21 Est GFR ( Amer) > 60 Glucose 160 H Calcium 9.4 02/12/19 05:28 WBC RBC Hgb Hct MCV MCH MCHC RDW Plt Count Seg Neutrophils % Sodium 139.8 Potassium 4.3 Chloride 104 Carbon Dioxide 25 Anion Gap 11 BUN 15 Creatinine 1.06 Est GFR ( Amer) > 60 Glucose 108 Calcium 9.0 Impressions: Venous Doppler Study 02/10/19 17:50 IMPRESSION: Consistent with acute DVT in the right femoral popliteal veins. Right GSV thrombosis as well. Qualifiers - * PATIENT BEING DISCHARGED WITH ANY OF THE FOLLOWING DIAGNOSIS: No Acute Heart Failure - Is this a Heart Failure Patient?: No Plan Time Spent: Greater than 30 Minutes - Patient tells me that he has to climb 16 stairs to get to his department but once in his apartment he has no stairs. I showed patient how high he needed to keep his leg elevated patient is to keep his appointment on the 26 with his PCP.. Patient was told it may take anywhere from 2 to 6 weeks for this edema pain and redness to resolve. Patient was told to control his diabetes his hemoglobin A1c was greatly elevated. he was given a prescription for a limited number of Percocet
[2019-02-12 12:13] VITALS: BP 135/90
== END 2019-02-12 13:51 | disposition home or self-care (01) ==
LOC: ER 17:07 → INTOOBSV 21:09 → EH 21:09 → OBSVTOIN 21:09 → 4N 02-11 00:25
PROVIDERS: ADMIT Emergency Medicine; ATTEND Emergency Medicine
DX: I82.411 Acute embolism and thrombosis of right femoral vein (principal); I82.431 Acute embolism and thrombosis of right popliteal vein; I82.491 Acute embolism and thrombosis of other specified deep vein of right lower extremity; E11.22 Type 2 diabetes mellitus with diabetic chronic kidney disease; I12.9 Hypertensive chronic kidney disease with stage 1 through stage 4 chronic kidney disease, or unspecified chronic kidney disease; N18.3 Chronic kidney disease, stage 3 (moderate); E66.01 Morbid (severe) obesity due to excess calories; E78.2 Mixed hyperlipidemia; Z68.38 Body mass index [BMI] 38.0-38.9, adult; Z91.14 Patient's other noncompliance with medication regimen; Z60.2 Problems related to living alone
CPT/HCPCS: 99284; 96365; 36415 ×3; 87040; 82962 ×2; 85025; 85027 ×2; 85610; 85730; 80048 ×2; 80053; 83036; 93971; G0378 ×3; J3490 ×2; J1815 ×2